=== PATIENT | male | born 1945 | race Caucasian/White ===

== ENCOUNTER → 2022-08-08 | Outpatient (CLI) | payer MEDICARE ==
[2022-08-08 15:16] LABS: Basophils # (A) 0.04 X 10*3/uL (0.00-0.10); Basophils % (A) 0.6 %; Eosinophils # (A) 0.51 X 10*3/uL (0.04-0.35); Eosinophils % (A) 7.2 %; HCT 42.5 % (39.6-50.0); Immature Grans, Automated 0.3 %; Lymphocytes # (A) 2.37 X 10*3/uL (0.90-5.00); Lymphocytes % (A) 33.2 %; MCH 28.9 pg (27.0-32.0); MCHC 32.9 g/dL (32.0-37.0); MCV 87.8 fL (80.0-97.0); Mean Platelet Volume 10.4 fL (9.5-12.2); Monocytes # (A) 0.59 X 10*3/uL (0.20-1.00); Monocytes % (A) 8.3 %; NRBC Per 100 WBC 0 /100 WBCS (0.0-0.0); Neutrophils % (A) 50.4 %; Platelet Count 199 X 10*3/uL (140-440); RBC 4.84 X 10*6/uL (4.40-5.60); RDW 12.9 % (11.5-14.5); WBC 7.13 X 10*3/uL (4.50-10.00)
[2022-08-08 15:48] LABS: African American GFR (CKD) 67.2 (60.0-200.0); Anion Gap 9.1 mmol/L (10.00-18.00); BUN/Creat Ratio 18.75 Ratio (12.00-20.00); Blood Urea Nitrogen 22.5 mg/dL (9.0-27.0); Calcium 9.6 mg/dL (8.7-10.3); Carbon Dioxide 27.9 mmol/L (20.0-27.5); Potassium 4.6 mmol/L (3.5-5.5)
[2022-08-08 16:13] LABS: INR 0.88 (0.90-1.11)
== END | disposition home or self-care (01) ==
LOC: LABWHC1 09:18
PROVIDERS: ATTEND Orthopaedic Surgery
DX: Z01.812 Encounter for preprocedural laboratory examination (principal); M17.12 Unilateral primary osteoarthritis, left knee
CPT/HCPCS: 36415; 80048; 85025; 85610

== ENCOUNTER 2022-08-18 07:39 | Day surgery (SDC) | payer MEDICARE ==
[2022-08-08 13:58] VITALS: BMI 26.4
--- NOTE | 2022-08-17 13:14 | HP ---
HISTORY AND PHYSICAL DATE OF SURGERY: 08/18/2022. HISTORY OF PRESENT ILLNESS: Chicho Napoles is a 77-year-old gentleman seen with symptomatic left knee osteoarthritis. We discussed options regarding treatment. He elected to proceed with left total knee arthroplasty. Consent regarding the procedure was obtained. PAST MEDICAL HISTORY: Hypertension, hyperlipidemia. PAST SURGICAL HISTORY: Right shoulder arthroscopy. DAILY MEDICATIONS: 1. Amlodipine. 2. Atorvastatin. 3. Losartan. 4. Propranolol. ALLERGIES: None. SOCIAL HISTORY: Denies tobacco use. PHYSICAL EVALUATION OF THE LEFT KNEE: Range of motion is -2/3 to 120 degrees. Mild effusion. Tenderness to medial joint line. Crepitus, medial patellofemoral compartments with range of motion. Some pain with patellofemoral compression. Ligaments stable. Hip rotation without pain. Distal neurovascular exam is intact. RADIOGRAPHS: Radiographs of the left knee reveal severe osteoarthritic changes. There were also 3 metallic alonzo within the medial proximal femur consistent with previous surgery. IMPRESSION: 1. Left knee osteoarthritis. 2. Hypertension. 3. Hyperlipidemia. PLAN: Left total knee arthroplasty. MMODL / IJN: [id number] /
[~2022-08-18 07:39] MED LIST: ACETAMINOPHEN TAB 500 MG TAB PO PRN; DEXAMETHASONE SOD PHOSPHATE 4 MG/ML 1 ML VIAL IV ONE; HYDROmorphone 0.5 MG/0.5 ML SYRINGE IVP PRN; LIDOCAINE 1% (10MG/ML) FOR IV START INTRADERMA PRN; MELOXICAM 7.5 MG TAB PO PRN; MIDAZOLAM 2 MG/2 ML VIAL IV PRN; ONDANSETRON 4 MG/2 ML VIAL IVP ONE; TRANEXAMIC ACID IN NACL,ISO-OS 1,000 MG in SALINE 1 100ML.BAG IVPB PRN
[2022-08-18] MEDS: LACTATED RINGERS 1,000 ML IV SCH (08:53)
[2022-08-18] MEDS ORDERED: MIDAZOLAM 2 MG/2 ML VIAL IVP ONE (09:11)
[2022-08-18] MEDS ORDERED: fentaNYL (PF) 50 MCG/ML 2 ML AMP IVP ONE (09:11)
--- NOTE | 2022-08-18 09:42 | P.ANPRN ---
Procedure Note - Anesthesia - Nerve Block Performed Left Adductor Canal Time Out Performed: Yes (09:10) Date of Procedure: 08/18/22 Procedure Start Time: : Procedure Stop Time: : Location of Patient: PreOp Indication: Acute Post-Operative Pain, Requested by Surgeon (Dr flores) Sedation Type: Sedate with meaningful contact maintained Preparation: Sterile Prep, Sterile Dressing Position: Supine Catheter: Indwelling Needle Types: Pajunk Needle Gauge: 21 Ultrasound used to visualize needle placement: Yes Ultrasound used to observe medication spread: Yes Injectate: 0.5% Ropivacaine (see comment for volume) (15cc +5cc PF Normal saline) Blood Aspirated: No Pain Paresthesia on Injection Noted: No Resistance on Injection: Normal Image Stored and Saved: Yes Events: Uneventful and Well Tolerated
--- NOTE | 2022-08-18 09:44 | P.ANPRN ---
Procedure Note - Anesthesia - Nerve Block Performed Left iPack Time Out Performed: Yes Date of Procedure: 08/18/22 Procedure Start Time: Procedure Stop Time: Location of Patient: PreOp Indication: Acute Post-Operative Pain, Requested by Surgeon (Dr Yoo) Sedation Type: Sedate with meaningful contact maintained Preparation: Sterile Prep Position: Supine Catheter: None Needle Types: Pajunk Needle Gauge: 21, Other (see comment) Ultrasound used to visualize needle placement: Yes Ultrasound used to observe medication spread: Yes Injectate: 0.5% Ropivacaine (see comment for volume) (15cc +5cc PF Normal saline) Blood Aspirated: No Pain Paresthesia on Injection Noted: No Resistance on Injection: Normal Image Stored and Saved: Yes Events: Uneventful and Well Tolerated
[2022-08-18] MEDS ORDERED: ePHEDrine 50 MG/ML 1 ML VIAL ONE (10:21)
[2022-08-18] MEDS ORDERED: MIDAZOLAM 2 MG/2 ML VIAL ONE (10:21)
[2022-08-18] MEDS ORDERED: TRANEXAMIC ACID IN NACL,ISO-OS 1,000 MG/100 ML BAG ONE (10:21)
[2022-08-18] MEDS ORDERED: PROPOFOL 10 MG/ML 20 ML VIAL IV ONE (10:21)
[2022-08-18] MEDS ORDERED: fentaNYL (PF) 50 MCG/ML 2 ML AMP ONE (10:21)
[2022-08-18] MEDS ORDERED: ceFAZolin 1,000 MG in SODIUM CHLORIDE 0.9% 1,000 ML IRRIGATION ONE (10:47)
[2022-08-18] MEDS ORDERED: LACTATED RINGERS 1,000 ML IV ONE (10:47)
[2022-08-18] MEDS ORDERED: HYDROmorphone 0.5 MG/0.5 ML SYRINGE IVP PRN ×3 (11:55)
[2022-08-18] MEDS ORDERED: ONDANSETRON 4 MG/2 ML VIAL IVP PRN (11:55)
[2022-08-18] MEDS ORDERED: HYDROcodone/APAP 5-325MG 1 EACH TAB PO PRN (11:55)
[2022-08-18] MEDS ORDERED: NALOXONE 0.4 MG/ML 1 ML VIAL IV PRN (11:55)
--- NOTE | 2022-08-18 11:55 | P.OP ---
Date of Procedure: 08/18/22 Preoperative Diagnosis: Left knee osteoarthritis Postoperative Diagnosis: Left knee osteoarthritis Procedure(s) Performed: Left total knee arthroplasty Implants: 1. Depuy attune size 7 left cruciate retaining cemented femur 2. Depuy attune size 8 fixed bearing cemented tibial baseplate 3. Depuy attune size 7 fixed bearing cruciate retaining 16mm polyethylene tibial insert 4. Depuy attune 38 mm all polyethylene cemented patella Anesthesia: regional (Adductor canal catheter, Ipack block), spinal Surgeon: Paramjit Yoo Reconciliation Coordinator #1: Erasmo Posada Estimated Blood Loss (ml): 45 Pathology: other (Bone) Condition: stable Disposition: PACU Indications for Procedure: 77-year-old patient seen with symptomatic left knee osteoarthritis. After treatment options were discussed, he elected to proceed with total knee art hroplasty. Operative Findings: See description of procedure Description of Procedure: Patient was taken to the operative suite after having an adductor canal catheter placed by the department of anesthesia. Patient underwent a spinal anesthetic by the department of anesthesia. Patient was given preoperative IV intake antibiotics and TXA. A well-padded tourniquet was placed about the left lower extremity. The lower extremity was then prepped and draped in the normal sterile orthopedic fashion. The extremity was elevated, a tourniquet was insufflated to 300. A standard anterior incision was made sharply through skin. Dissection was taken down through the subcutaneous soft tissues down to the extensor mechanism. A medial arthrotomy was performed, patella was everted and knee was flexed. There was advanced osteoarthritis noted. I introduced my distal intramedullary femoral drill. I then introduced the distal femoral cutting jig. Raghav VALLE secured the cutting jig with 2 pins. I held retractors in position while Raghav VALLE performed the distal femoral resection through the guide area we now removed her distal femoral cutting guide. We now placed our 4-in-1 femoral cutting block and positioned and it was secured with 2 pins by Raghav VALLE while I held the block in position. The distal femoral finishing was now completed. A proximal tibial cutting guide was positioned. I held the guide in the appropriate position with both hands well Raghav VALLE inserted stabilizing pins into the guide. Proximal tibial cut was made. We now placed a trial femoral component into position, along with an appropriate size tibial tray and insert. We now took the knee through range of motion and had full extension good flexion and good overall soft tissue balance noted. The patella was everted and stabilized with 2 towel clips held by Raghav VALLE while I performed a flush with patellar quad tendon utilizing a fresh sawblade. We templated the patella, appropriate drill holes were made. An appropriate trial patella was positioned, knee was taken through full range of motion with the patella tracking very nicely. The trial patella was removed. Drill holes were made through the femoral component. All trial components were removed after marking off the appropriate rotation of the tibia. Retractors we re now positioned along the proximal tibia. An appropriate keel punch was made with the appropriate size tibial guide by myself on Raghav VALLE assisted by holding retractors. At this point appropriate size implants were chosen and opened. The joint was irrigated copiously with pulse lavage mechanical irrigation. The wound was irrigated with pulse lavage mechanical irrigation. We mixed antibiotic methylmethacrylate. We placed the knee into flexion. We placed multiple retractors assisted by Raghav VALLE to expose the proximal tibia. Once the methyl methacrylate was ready, the tibial component was cemented into place removing any excess methylmethacrylate form by both myself and Raghav VALLE. The femoral component was cemented into place removing the removing any excess methylmethacrylate performed by both myself and Raghav VALLE. We then inserted the appropriate size polyethylene tibial insert. We made sure that it was locked into position. We took the knee into full extension, and then back in a flexion making sure we had removed any excess methylmethacrylate. The patellar component was then cemented down and secured with clamp. Excess methylmethacrylate removed. We kept the knee in full extension, patellar clamp in position until methylmethacrylate had hardened. Once it had hardened the patellar clamp was removed. The knee was taken through full range of motion. The patella tracked nicely. There was good soft tissue balancing. The tourniquet was now released. Additional hemostasis was achieved via electrocautery. A second gram of TXA was given. The wound again was irrigated with pulse lavage mechanical irrigation. The extensor mechanism was repaired with Ethibond suture. We checked the repair with range of motion and it was stable. The subcutaneous soft tissues were repaired with Vicryl in layers. The skin was approximated with pernio/Dermabond. Sterile dressings were applied followed by loose web roll and Alexandro bandage. The patient was transferred to a bed, and taken to recovery in stable and satisfactory condition. Raghav VALLE assisted with this complex procedure.
[2022-08-18] MEDS ORDERED: ROPIVACAINE 1,100 MG, SODIUM CHLORIDE 0.9% 500 ML 330 ML, EMPTY PAIN BALL 1 EACH MISCELLANE PRN ×2 (12:42)
--- NOTE | 2022-08-18 12:49 | XR ---
EXAMINATION TYPE: XR knee limited LT DATE OF EXAM: 08/18/2022 CLINICAL HISTORY: Left knee pain and arthritis status post total knee replacement. TECHNIQUE: Portable AP and crosstable lateral views of the left knee are obtained immediately postop eratively. COMPARISON: Outside left knee x-ray June 17, 2022 FINDINGS: Metallic hardware from total left knee arthroplasty is seen and appears satisfactory in al ignment and position. Retained large alonzo distal medial femoral condyle are redemonstrated. There is evidence of recent surgery with diffuse subcutaneous gas and soft tissue swelling noted. IMPRESSION: METALLIC HARDWARE FROM TOTAL LEFT KNEE ARTHROPLASTY IS SATISFACTORY IN ALIGNMENT.
[2022-08-18] MEDS: SODIUM CHLORIDE 0.9% 1,000 ML IV SCH (13:29)
[2022-08-18] MEDS: HYDROcodone/APAP 7.5-325MG 1 EACH TAB PO PRN ×2 (14:38→21:21)
[2022-08-18] MEDS ORDERED: SENNOSIDES-DOCUSATE SODIUM 1 EACH TAB PO SCH (21:00)
[2022-08-18] MEDS ORDERED: amLODIPine 5 MG TAB PO SCH (21:00)
[2022-08-18] MEDS ORDERED: ATORVASTATIN 40 MG TAB PO SCH (21:00)
[2022-08-18] MEDS ORDERED: PROPRANOLOL LA 60 MG CAP.SA.24H PO SCH (21:00)
--- NOTE | 2022-08-18 23:05 | P.CONS ---
History of Present Illness - Reason for Consult Consult date: 08/18/22 - History of Present Illness Patient is a 77-year-old male with a known history of hypertension, hyperlipidemia, osteoarthritis, coronary artery with history of stent placement, BPH, hearing disorder/deafness and prior history of smoking quit several years ago was admitted to the hospital for elective left total knee arthroplasty. Patient tolerated the procedure very well. Currently pain is controlled and is on pain pump. Postoperatively blood pressure is elevated with SBP in 160s. Patient denies any complaints of chest pain or shortness of breath. No headache or dizziness or lightheadedness. No nausea or vomiting or abdominal pain or diarrhea. Laboratory data is not available at this time. Review of Systems Constitutional: Patient denies any fever or chills . no Generalized weakness. Abdomen: Patient denied any nausea or vomiting or abd. pain Cardiovascular: Patient denies any chest pain or short of breath no palpitations. Respiratory: patient denied any cough . no sputum production. No shortness of breath Neurologic: Patient denied any numbness or tingling headache. Musculoskeletal: Patient denies any complaints of joint swelling or deformity. Skin: Negative Psychiatric: Negative Endocrine: No heat or cold intolerance. No recent weight gain. Genitourinary: No dysuria or hematuria. All other 14 point ROS negative except the above Past Medical History Past Medical History: Cancer, COPD, Hearing Disorder / Deafness, Hyperlipidemia, Hypertension, Musculoskeletal Disorder, Osteoarthritis (OA), Prostate Disorder Additional Past Medical History / Comment(s): hx. skin cancer , cleopatra tinnitis, wears cleopatra hearing aides,BPH History of Any Multi-Drug Resistant Organisms: None Reported Past Surgical History: Appendectomy, Heart Catheterization With Stent, Hernia Repair, Orthopedic Surgery Additional Past Surgical History / Comment(s): knee surg lft., bilateral shoulder surg, laser surgery x2 for enlarged prostate,turp for prostate disorder, heart cath after positive stress test Past Anesthesia/Blood Transfusion Reactions: No Reported Reaction Additional Past Anesthesia/Blood Transfusion Reaction / Comm: urine retention x after shoulder surgery before TURP Date of Last Stent Placement:: 10/25/19 Past Psychological History: No Psychological Hx Reported Smoking Status: Former smoker Past Alcohol Use History: None Reported Additional Past Alcohol Use History / Comment(s): quit 1989,started smoking at age 12 Past Drug Use History: None Reported - Past Family History Mother Family Medical History: Cancer Sister(s) Family Medical History: Cancer Additional Family Medical History / Comment(s): twin sisters-1 had ovarian CA,1 had breast CA w. mets to brain Medications and Allergies Home Medications Medication Instructions Recorded Confirmed Type Diclofenac Potassium [Cataflam] 50 mg PO BID 08/15/14 08/14/22 History Atorvastatin Calcium 40 mg PO HS 07/08/22 08/08/22 History Losartan Potassium 100 mg PO HS 07/08/22 08/08/22 History Propranolol HCl [Inderal] 60 mg PO HS 07/08/22 08/08/22 History amLODIPine [Norvasc] 5 mg PO HS 07/08/22 08/08/22 History Clopidogrel [Plavix] 75 mg PO DAILY 08/18/22 08/18/22 History Allergies Allergy/AdvReac Type Severity Reaction Status Date / Time No Known Allergies Allergy Verified 08/18/22 08:06 Physical Exam Vitals: Vital Signs Temp Pulse Pulse Pulse Resp BP Pulse Ox 08/18/22 21:18 76 129/82 08/18/22 19:20 97.5 F L 71 17 147/84 94 L 08/18/22 16:00 58 L 165/99 08/18/22 15:45 56 L 154/97 08/18/22 15:30 57 L 172/95 08/18/22 15:15 55 L 170/96 08/18/22 15:00 54 L 174/100 08/18/22 14:45 53 L 183/82 08/18/22 14:30 52 L 160/89 08/18/22 14:15 50 L 164/92 08/18/22 14:00 97.4 F L 53 L 16 144/80 94 L 08/18/22 13:01 51 L 16 148/80 100 08/18/22 12:46 62 17 128/80 08/18/22 12:31 51 L 17 130/78 97 08/18/22 12:16 96.9 F L 50 L 16 128/69 95 08/18/22 09:32 47 L 16 125/72 99 08/18/22 08:28 97.3 F L 53 L 16 148/73 97 Intake and Output 08/18/22 08/18/22 08/18/22 06:59 14:59 22:59 Intake Total 1851 480 Output Total 45 600 Balance 1806 -120 Intake: IV 1851 Oral 480 Output: Urine 600 Estimated Blood Loss 45 Other: # Voids 0 Weight 86.9 kg PHYSICAL EXAMINATION: Patient is lying in the bed comfortably, no acute distress, awake alert and oriented.. HEENT: Normocephalic. Neck is supple. Pupils reactive. Nostrils clear. Oral cavity is moist. Neck reveals no JVD, carotid bruits, or thyromegaly. CHEST EXAMINATION: Trachea is central. Symmetrical expansion. Bibasilar diminished sounds. No wheezing. CARDIAC: Normal S1, S2 with no gallops. No murmurs ABDOMEN: Soft. Bowel sounds present. Nontender. No organomegaly. No abdominal bruits. Extremities: reveal no edema. No clubbing or cyanosis Neurologically awake, alert, oriented x3 with well-coordinated movements. No focal deficits noted Skin: No rash or skin lesions. Psychiatric: Coperative. Nonsuicidal, Musculoskeletal: No joint swelling or deformity. Normal range of motion. Right knee surgical site is bandaged. Assessment and Plan Assessment: Status post left total knee arthroplasty postoperative day 0 Hypertension uncontrolled likely due to pain. Coronary artery with history of stent placement Hyperlipidemia COPD and remote history of smoking History of skin cancer Hearing disorder/deafness Osteoarthritis BPH s/p TURP GI and DVT prophylaxis as per orthopedic surgery protocol Plan: Patient will be started back on blood pressure medications amlodipine, losartan and propranolol. Titrate blood pressure medications as needed. Continue with Plavix and statins. Patient is currently on nerve block. Pain is fairly controlled. Bowel regimen and DVT prophylaxis. Encourage incentive spirometry. Follow-up CBC and BMP tomorrow. Further recommendations based on the clinical course. Thank you for your consult. Time with Patient: Greater than 30
[2022-08-19 03:24] VITALS: TEMP 97.9
[2022-08-19] MEDS ORDERED: ENOXAPARIN 30 MG/0.3 ML SYRINGE SQ SCH (05:00)
[2022-08-19] MEDS: HYDROcodone/APAP 7.5-325MG 1 EACH TAB PO PRN ×2 (05:06→10:22)
--- NOTE | 2022-08-19 06:35 | P.PN ---
Progress Note - Text The patient is status post, left adductor canal catheter placement. The catheter was placed for postoperative pain control, status post total left knee arthroplasty. Ropivacaine 0.2% is infusing at 8 mLs per hour. The patient has no complaints of left lower extremity numbness or weakness. Patient's VAS score is 1-2-10. This discomfort is in the lateral aspect of the knee. Assessment: Patient's adductor canal catheter is in place and working appropriately. Plan: continue infusion and adjust it as needed.
[2022-08-19] MEDS: SODIUM CHLORIDE 0.9% 1,000 ML IV SCH (07:49)
[2022-08-19] MEDS: LACTATED RINGERS 1,000 ML IV SCH (07:49)
[2022-08-19 08:21] VITALS: BP 153/78; PULSE 65; RESP 18
[2022-08-19] MEDS ORDERED: CLOPIDOGREL 75 MG TAB PO SCH (09:00)
[2022-08-19 10:59] LABS: Basophils # (A) 0.03 X 10*3/uL (0.00-0.10); Basophils % (A) 0.2 %; Eosinophils # (A) 0.02 X 10*3/uL (0.04-0.35); Eosinophils % (A) 0.1 %; HCT 40.9 % (39.6-50.0); Immature Grans, Automated 0.5 %; Lymphocytes % (A) 14.1 %; MCH 29.7 pg (27.0-32.0); MCHC 34.2 g/dL (32.0-37.0); MCV 86.8 fL (80.0-97.0); Mean Platelet Volume 10.6 fL (9.5-12.2); Monocytes # (A) 1.38 X 10*3/uL (0.20-1.00); Monocytes % (A) 9.3 %; NRBC Per 100 WBC 0 /100 WBCS (0.0-0.0); Neutrophils % (A) 75.8 %; Platelet Count 219 X 10*3/uL (140-440); RBC 4.71 X 10*6/uL (4.40-5.60); RDW 13.2 % (11.5-14.5); WBC 14.91 X 10*3/uL (4.50-10.00)
[2022-08-19 11:12] LABS: African American GFR (CKD) 95.1 (60.0-200.0); Anion Gap 9.5 mmol/L (10.00-18.00); BUN/Creat Ratio 16.89 Ratio (12.00-20.00); Blood Urea Nitrogen 15.2 mg/dL (9.0-27.0); Calcium 9.3 mg/dL (8.7-10.3); Carbon Dioxide 25.5 mmol/L (20.0-27.5); Non-African American GFR(CKD) 82.1 (60.0-200.0); Potassium 4.9 mmol/L (3.5-5.5)
--- NOTE | 2022-08-19 11:24 | P.DS ---
Providers Date of admission: 08/18/2022 Expected date of discharge: 08/19/22 Attending physician: Paramjit Yoo Consults: 08/18/22 11:55 Consult Physician Routine Consulting Provider: Dwayne Cruz Consult Reason/Comments: Medical management Do you want consulting provider notified?: Yes Primary care physician: Binh Rodrigues MD Hospital Course: Date of admission: 08/18/2022 Date of discharge: 08/19/2022 Admission diagnosis: Left knee osteoarthritis Discharge diagnosis: Same Attending physician: Dr. Yoo Surgical procedures: Left total knee arthroplasty Brief history: Patient is a 77-year-old male with a history of progressive primary left knee osteoarthritis. At this point patient has failed conservative treatment measures and has opted to proceed with a elective left total knee arthroplasty. Hospital course: Details of patient's surgery can be found in operative report. Patient tolerated the procedure well and was subsequently transported to orthopedic floor. Patient's orthopeidc and medical care was provided daily. Patient had daily laboratory tests performed for evaluation of overall blood counts. Patient had daily physical therapy to include strengthening range of motion as well as education with walker ambulation. Patient was treated with Lovenox for their postoperative DVT prophylaxis during their inpatient stay. Patient was noted to have a relatively uneventful postoperative course. Patient reported satisfactory pain control with oral pain medications by postoperative day 1. Patient showed satisfactory progress with physical therapy. Patient moved steadily through the program and had no difficulty meeting the goals by postoperative day 1. Given patient's otherwise satisfactory course and having met physical therapy goals, plan is to discharge patient home with health services on postoperative day 1. Discharge condition/disposition: Patient will be discharged home with health services in stable condition. Discharge medications: Instructions are given on resumption of patient's normal daily medications per primary care recommendation, in addition patient will be prescribed [place] 7.5 mg/325 mg; senna; resume Plavix 75 mg daily once home Discharge instructions: 1. Wound care and infection precautions, keep incision dry and covered while showering, no lotions, creams, moisturizers. No soaking, tubs, pools, hottubs. Do not scrub over the incision. 2. Weight-bear as tolerated with walker / cane until follow-up. 3. Ice and elevate when necessary. Do not exceed 20 minutes per hour with ice pack. 4. Utilize compression sleeve until seen at first follow up appointment. 5. Visiting nursing care. 6. Home physical therapy including home CPM. 7. Pain meds and anticoagulants per prescription. 8. Pain medication has potential to cause constipation. Increase oral fluid and fiber intake. Contact primary care provider if you have not had a bowel movement within 48 hours after discharge 9. No anti-inflammatory medication until discussed at first post operative visit, this including Motrin, Aleve, Mobic, Diclofenac 10. Follow up in office at 2 weeks postop with Raghav Posada PA-C / Jose Jacobsen PA-C 11. Follow up with your primary care doctor 7-10 days after discharge. 12. Contact [facility] with any questions, . Keep incision clean, dry, intact. While showering, cover silver foam dressing with Saran wrap. Silver foam dressing may removed in 7 days, 08/25/2022. May shower directly over incision once silver foam dressing is removed Assessment: Left knee osteoarthritis Procedures: Left total knee arthroplasty Patient Condition at Discharge: Good Plan - Discharge Summary Discharge Rx Participant: No New Discharge Prescriptions: New HYDROcodone/APAP 7.5-325MG [[place] 7.5] 1 - 2 each PO Q6HR PRN #32 tab PRN Reason: Pain Sennosides/Docusate Sodium [Senna Plus 8.6-50 mg Softgel] 1 each PO DAILY #20 capsule Continue Clopidogrel [Plavix] 75 mg PO DAILY No Action Diclofenac Potassium [Cataflam] 50 mg PO BID Propranolol HCl [Inderal] 60 mg PO HS amLODIPine [Norvasc] 5 mg PO HS Losartan Potassium 100 mg PO HS Atorvastatin Calcium 40 mg PO HS Discharge Medication List Diclofenac Potassium [Cataflam] 50 mg PO BID 08/15/14 [History] Atorvastatin Calcium 40 mg PO HS 07/08/22 [History] Losartan Potassium 100 mg PO HS 07/08/22 [History] Propranolol HCl [Inderal] 60 mg PO HS 07/08/22 [History] amLODIPine [Norvasc] 5 mg PO HS 07/08/22 [History] Clopidogrel [Plavix] 75 mg PO DAILY 08/18/22 [History] HYDROcodone/APAP 7.5-325MG [[place] 7.5] 1 - 2 each PO Q6HR PRN #32 tab 08/19/22 [Rx] Sennosides/Docusate Sodium [Senna Plus 8.6-50 mg Softgel] 1 each PO DAILY #20 capsule 08/19/22 [Rx] Follow up Appointment(s)/Referral(s): Binh Rodrigues MD [Primary Care Provider] - 1 Week Erasmo Posada PAC [PHYSICIAN HAND CLOTH FOLDER] - 09/03/22 4:10 pm Patient Instructions/Handouts: Knee Replacement (DC) Activity/Diet/Wound Care/Special Instructions: Discharge instructions: 1. Wound care and infection precautions, keep incision dry and covered while showering, no lotions, creams, moisturizers. No soaking, tubs, pools, hottubs. Do not scrub over the incision. 2. Weight-bear as tolerated with walker / cane until follow-up. 3. Ice and elevate when necessary. Do not exceed 20 minutes per hour with ice pack. 4. Utilize compression sleeve until seen at first follow up appointment. 5. Visiting nursing care. 6. Home physical therapy including home CPM. 7. Pain meds and anticoagulants per prescription. 8. Pain medication has potential to cause constipation. Increase oral fluid and fiber intake. Contact primary care provider if you have not had a bowel movement within 48 hours after discharge 9. No anti-inflammatory medication until discussed at first post operative visit, this including Motrin, Aleve, Mobic, Diclofenac 10. Follow up in office at 2 weeks postop with Raghav Posada PA-C / Jose Jacobsen PA-C 11. Follow up with your primary care doctor 7-10 days after discharge. 12. Contact [facility] with any questions, . Keep incision clean, dry, intact. While showering, cover silver foam dressing with Saran wrap. Silver foam dressing may removed in 7 days, 08/25/2022. May shower directly over incision once silver foam dressing is removed Discharge Disposition: HOME WITH HOME HEALTH SERVICES
--- NOTE | 2022-08-19 11:28 | P.PN ---
Subjective Progress Note Date: 08/19/22 Principal diagnosis: Left knee osteoarthritis Patient was seen at bedside this morning walking from bathroom and sitting down at the edge of the bed. Patient says he is in a fair amount of pain currently. Patient states most the pain is located at the front of the knee. Patient denies radiation of pain. Patient says physical therapy did go well this morning. Patient says he is looking forward to going home later today. Patient says he does have a walker at home. Patient says normally he had been taking Plavix at home prior to surgery. Patient says he has urinated several times since surgery yesterday. Patient says he has not had bowel movement yet, however, patient says he has been passing gas. Patient says he has been using incentive spirometer. Patient denies chest pain, fever, shortness of breath, nausea, lying, change in vision, loss of bowel/bladder control. Objective - Vital Signs Vital signs: Vital Signs Temp 97.9 F 08/19/22 02:00 Pulse 65 08/19/22 08:00 Resp 18 08/19/22 08:00 BP 153/78 08/19/22 08:00 Pulse Ox 96 08/19/22 08:00 FiO2 Intake & Output 08/18/22 08/19/22 08/19/22 18:59 06:59 18:59 Intake Total 2331 Output Total 45 1500 Balance 2286 -1500 Weight 86.9 kg Intake: IV 1851 Oral 480 Output: Urine 1500 Estimated Blood Loss 45 Other: # Voids 0 - Exam Left knee: Incision is clean, dry, and intact. The silver foam dressing is in good condition. There is minimal soft tissue swelling and ecchymosis surrounding the medial and lateral aspects of the incision. Calf is soft, no tenderness with palpation. Plantar flexion, dorsiflexion, EHL, FHL are intact. Sensory exam to light touch throughout the extremity is intact, dorsal pedis pulses 2+. - Labs CBC & Chem 7: 08/19/22 06:58 08/19/22 06:58 Labs: Abnormal Lab Results - Last 24 Hours (Table) 08/19/22 Range/Units 06:58 WBC 14.91 H (4.50-10.00) X 10*3/uL Immature Gran # 0.08 H (0.00-0.04) X 10*3/uL Neutrophils # 11.30 H (1.80-7.70) X 10*3/uL Monocytes # 1.38 H (0.20-1.00) X 10*3/uL Eosinophils # 0.02 L (0.04-0.35) X 10*3/uL Assessment and Plan Assessment: 1. Left knee osteoarthritis - Postoperative day #1 status post left total knee arthroplasty Plan: 1. Left knee osteoarthritis - left total knee arthroplasty performed yesterday, 08/18/2022. Patient stable bedside this morning. Patient does have a walker for home. Discharge home today with health services. 2. Appreciate medical management 3. Pain management - [place] 4. DVT prophylaxis - Lovenox in hospital. Resume Plavix once home 5. GI prophylaxis - senna 6. PT/OT - weightbearing as tolerated with walker 7. Encourage incentive spirometer use 8. Discharge planning - discharge home today with health services Time with Patient: Less than 30
[2022-08-19] MEDS ORDERED: MULTIVITAMINS, THERA 1 EACH TAB PO SCH (12:00)
--- NOTE | 2022-08-19 22:35 | PN ---
PROGRESS NOTE DATE OF SERVICE: 08/19/2022 SUBJECTIVE: This is a 77-year-old gentleman, who was admitted after left total knee arthroplasty, improving significantly. No chest pain. No palpitations. No fever. OBJECTIVE: VITAL SIGNS: Pulse is 65, blood pressure 115/70, respirations 18. CHEST: Clear to auscultation. CARDIOVASCULAR: S1 and S2. ABDOMEN: Soft. LEGS: Status post left arthroplasty. LABORATORY DATA: Noted. ASSESSMENT: 1. Status post left total knee arthroplasty. 2. Hypertension. 3. Coronary artery disease. 4. Hyperlipidemia. 5. Multiple medical issues. RECOMMENDATIONS AND DISCUSSION: This patient medically stable at this time. I would recommend to resume the home medications and follow up with the primary physician. The rest of the recommendations including DVT prophylaxis per Orthopedics. MMODL / IJN: [id number] / MTDD
== END 2022-08-19 12:55 | disposition home health service (06) ==
LOC: OR 07:39 → 4SSUR 12:10 → OR 08-19 12:55
PROVIDERS: ATTEND Orthopaedic Surgery
DX: M17.12 Unilateral primary osteoarthritis, left knee (principal); G89.18 Other acute postprocedural pain; I10 Essential (primary) hypertension; E78.5 Hyperlipidemia, unspecified; H91.90 Unspecified hearing loss, unspecified ear; J44.9 Chronic obstructive pulmonary disease, unspecified; N42.9 Disorder of prostate, unspecified; N40.0 Benign prostatic hyperplasia without lower urinary tract symptoms; Z90.49 Acquired absence of other specified parts of digestive tract; Z95.5 Presence of coronary angioplasty implant and graft; Z98.890 Other specified postprocedural states; Z87.891 Personal history of nicotine dependence; Z80.8 Family history of malignant neoplasm of other organs or systems; Z80.3 Family history of malignant neoplasm of breast; Z79.899 Other long term (current) drug therapy; Z79.02 Long term (current) use of antithrombotics/antiplatelets
CPT/HCPCS: 97161; 64999; 64448; 76942; 80048; 85025; 88300; 73560; 27447; C1776; C1713 ×2; C1751; J2250; J1100; J0690 ×3; J2405; J3010; J1650; J2795; J1170

== ENCOUNTER 2022-11-26 08:58 | Observation (INO) | payer MEDICARE, OTHER ==
[2022-11-25 12:03] VITALS: BMI 25.6
--- NOTE | 2022-11-25 15:33 | HP ---
HISTORY AND PHYSICAL DATE OF SURGERY: 11/26/2022. HISTORY OF PRESENT ILLNESS: Chicho Napoles is a 77-year-old gentleman seen with a left knee periprosthetic quadriceps tendon rupture. I discussed open repair of his quadriceps tendon rupture. He was agreeable. Consent was obtained. PAST MEDICAL HISTORY: Hypertension, hyperlipidemia. PAST SURGICAL HISTORY: Left total knee arthroplasty, right shoulder arthroscopy. DAILY MEDICATIONS: 1. Amlodipine. 2. Atorvastatin. 3. Losartan. 4. Propranolol. ALLERGIES: None. SOCIAL HISTORY: He denies current tobacco use. PHYSICAL EVALUATION OF THE LEFT KNEE: There is an obvious defect along the distal quadriceps tendon area consistent with quadriceps tendon rupture. He is unable to fully extend his knee. His previous incision is well healed. His collateral ligaments are stable. His distal neurovascular exam is intact. RADIOGRAPHS: Radiographs of the left knee revealed a stable appearing total knee arthroplasty. There is evidence of patella baja consistent with extensor tendon injury. IMPRESSION: 1. Left knee quadriceps tendon rupture. 2. History of left total knee arthroplasty. 3. Hypertension. 4. Hyperlipidemia. PLAN: Left knee open quadriceps tendon repair. MMODL / IJN: [id number] /
[2022-11-26] MEDS ORDERED: LACTATED RINGERS 1,000 ML IV ONE ×2 (09:32→11:29)
[2022-11-26] MEDS ORDERED: ONDANSETRON 4 MG/2 ML VIAL ONE (09:34)
[2022-11-26] MEDS ORDERED: DEXAMETHASONE SOD PHOSPHATE 4 MG/ML 1 ML VIAL IVP ONE (09:37)
[2022-11-26] MEDS ORDERED: fentaNYL (PF) 50 MCG/ML 2 ML AMP ONE (10:30)
[2022-11-26] MEDS ORDERED: NEOSTIGMINE 1 MG/ML 10 ML VIAL ONE (10:30)
[2022-11-26] MEDS ORDERED: ROCURONIUM 10 MG/ML (5 ML VIAL) IV ONE (10:30)
[2022-11-26] MEDS ORDERED: HYDROmorphone (PF) 1 MG/ML ONE (10:30)
[2022-11-26] MEDS ORDERED: LABETALOL SYRINGE 5 MG/ML (4 ML SYR) ONE (10:30)
[2022-11-26] MEDS ORDERED: MIDAZOLAM 2 MG/2 ML VIAL ONE (10:30)
[2022-11-26] MEDS ORDERED: LIDOCAINE 2% INJ 20 MG/ML (2 ML VIAL) ONE (10:30)
[2022-11-26] MEDS ORDERED: ePHEDrine 50 MG/ML 1 ML VIAL ONE (10:30)
[2022-11-26] MEDS ORDERED: PROPOFOL 10 MG/ML 20 ML VIAL IV ONE (10:30)
[2022-11-26] MEDS ORDERED: SUCCINYLCHOLINE CHLORIDE 200 MG/10 ML VIAL IV ONE (10:30)
[2022-11-26] MEDS ORDERED: GLYCOPYRROLATE 0.2 MG/ML 2 ML VIAL ONE (10:30)
[2022-11-26] MEDS ORDERED: HYDROcodone/APAP 5-325MG 1 EACH TAB PO PRN ×2 (11:38)
[2022-11-26] MEDS ORDERED: NALOXONE 0.4 MG/ML 1 ML VIAL IV PRN (11:38)
[2022-11-26] MEDS ORDERED: HYDROmorphone 0.5 MG/0.5 ML SYRINGE IVP PRN ×2 (11:38)
[2022-11-26] MEDS ORDERED: ONDANSETRON 4 MG/2 ML VIAL IVP PRN (11:38)
--- NOTE | 2022-11-26 11:38 | P.OP ---
Date of Procedure: 11/26/22 Preoperative Diagnosis: Left knee quadriceps tendon tear Postoperative Diagnosis: Left knee quadriceps tendon tear Procedure(s) Performed: Left knee open quadriceps tendon repair Anesthesia: JARRODA Surgeon: Paramjit Yoo Equipment Cleaner And Tester #1: Jose Jcaobsen Estimated Blood Loss (ml): 12 Pathology: none sent Condition: stable Disposition: PACU Indications for Procedure: 77-year-old gentleman was seen with a clinical left knee quadriceps tendon tear. He had history of previous left total knee arthroplasty as well. I recommended open repair of his quadriceps tendon tear. He was agreeable. Consent was obtained. Operative Findings: See description of procedure Description of Procedure: Patient was taken to the operative suite. He received preoperative IV antibiotics. He underwent a general anesthetic by the department of anesthesia. A well-padded tourniquet was placed along the proximal left thigh. Left lower extremity was prepped and draped in the normal sterile orthopedic fashion. The extremity was elevated and tourniquet insufflated to 300. I now made an incision through previous cicatrix sharply through skin. Once again the subcu soft tissues I encountered hematoma and synovial fluid along with a complete tear of the quadriceps tendon which extended into the medial lateral retinacular areas. We irrigated the wound out copiously with pulse lavage mechanical irrigation and antibiotic irrigant. We now debrided some of the torn tissue and some of the residual sutures were debrided out. The tear was intratendinous. The total knee arthroplasty components appeared stable. I now irrigated the wound out copiously one more time. I now with the assistance of Jose VALLE began doing a soft tissue repair utilizing initially #5 Ethibond in a modified Krakw fashion. I stabilized the tendon centrally well with that. I now began repairing the tendon [id number] fashion medially and laterally utilizing #2 Ethibond. Once I completed the repair including the retinaculum and the entire tendon I checked the repair with flexing the hip to 30 with excellent stability noted. The wound was again irrigated copiously with pulse lavage mechanical irrigation. The subcu soft tissues were repaired with 2-0 Vicryl. The skin was approximated with skin alonzo. Sterile dressings were applied. The tourniquet was released with immediate capillary refill noted. A sterile Alexandro bandage was applied followed by knee immobilizer. The patient was awakened and transferred to recovery in stable condition. Jose VALLE assisted in all aspects of this procedure.
[2022-11-26] MEDS: HYDROmorphone 0.5 MG/0.5 ML SYRINGE IVP PRN ×4 (12:02→13:46)
[2022-11-26] MEDS ORDERED: diphenhydrAMINE 50 MG/ML 1 ML VIAL IVP ONE (12:14)
[2022-11-26] MEDS ORDERED: hydrALAZINE HCL 20 MG/ML 1 ML VIAL IVP ONE (12:56)
[2022-11-26] MEDS: SODIUM CHLORIDE 0.9% 1,000 ML IV SCH (18:10)
--- NOTE | 2022-11-26 19:23 | P.CONS ---
History of Present Illness - Reason for Consult Consult date: 11/26/22 Medical management Requesting physician: Paramjit Yoo - Chief Complaint Left knee tendon repair - History of Present Illness This is a pleasant 77-year-old patient follows with Dr. Binh Rodrigues. Chronic stable medical conditions include COPD, hard of hearing, hyperlipidemia, hypertension, chronic tinnitus, CAD with stent about 3 years ago[address] Wong. Patient has undergone left knee quadriceps tendon repair. Postprocedure left leg in a brace. Pain control. No nausea vomiting. 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 Smoked a pack a day for about 30 years stopped about 33 years ago. . Physical examination: VITAL SIGNS: 97.6, 85, 18, 145-74, 95% room GENERAL: BMI 24.8, reclining but awake not in distress. EYES: Pupils equal. Conjunctiva normal. HEENT: External appearance of nose and ears normal, oral cavity grossly normal. Decreased hearing NECK: JVD not raised; masses not palpable. HEART: First and second heart sounds are normal; no edema. LUNGS: Respiratory rate normal; clear to auscultation. ABDOMEN: Soft, nontender, liver spleen not palpable, no masses palpable. PSYCH: Alert and oriented x3; mood and affect normal. MUSCULOSKELETAL:No Clubbing/cyanosis;muscles-grossly intact. Left leg in a brace NEUROLOGICAL: Cranial nerves grossly intact; no facial asymmetry, power and sensation grossly intact. LYMPHATICS: No lymph nodes palpable in the axilla and neck INVESTIGATIONS, reviewed in the clinical context: Blood work from 08/19/2022: White count 14.9 hemoglobin 14 platelets 219 sodium 138 potassium 4.9 creatinine 0.9 Assessment and plan: -Left knee open quadriceps tendon repair by Dr. Yoo. Left leg in a brace. Pain control. Subcu Lovenox for DVT prophylaxis -COPD in a prior smoker Currently stable. Use albuterol when necessary. -Essential hypertension Losartan. Inderal. Resume amlodipine from tomorrow. -CAD with a prior history of stent Losartan. Lipitor. Inderal -Chronic tinnitus with hard of hearing Has hearing aids. Has left the same at home Home medications renewed. Discussed with patient. Son at the bedside. Thank you Dr. Guzman Past Medical History Past Medical History: Cancer, COPD, Hearing Disorder / Deafness, Hyperlipidemia, Hypertension, Musculoskeletal Disorder, Prostate Disorder Additional Past Medical History / Comment(s): hx. skin cancer , [place] tinnitis, wears [place]atra hearing aides. History of Any Multi-Drug Resistant Organisms: None Reported Past Surgical History: Appendectomy, Heart Catheterization With Stent, Hernia Repair, Joint Replacement, Orthopedic Surgery Additional Past Surgical History / Comment(s): knee surg lft., bilateral shoulder surg., laser surgery and turp for prostate disorder, Left TKA Past Anesthesia/Blood Transfusion Reactions: No Reported Reaction Additional Past Anesthesia/Blood Transfusion Reaction / Comm: urine retention Date of Last Stent Placement:: 10/25/19 Smoking Status: Former smoker - Past Family History Mother Family Medical History: Cancer Sister(s) Family Medical History: Cancer Medications and Allergies Home Medications Medication Instructions Recorded Confirmed Type Diclofenac Potassium [Cataflam] 50 mg PO BID 08/15/14 11/25/22 History Atorvastatin Calcium 40 mg PO HS 07/08/22 11/25/22 History Losartan Potassium 100 mg PO HS 07/08/22 11/25/22 History Propranolol HCl [Inderal] 60 mg PO HS 07/08/22 11/25/22 History amLODIPine [Norvasc] 5 mg PO HS 07/08/22 11/25/22 History Allergies Allergy/AdvReac Type Severity Reaction Status Date / Time No Known Allergies Allergy Verified 11/25/22 11:47 Physical Exam Vitals: Vital Signs Temp Pulse Pulse Pulse Resp BP BP 11/26/22 16:00 97.6 F 85 18 145/74 11/26/22 15:00 60 16 136/81 11/26/22 14:30 72 16 143/80 11/26/22 14:00 61 16 153/81 11/26/22 13:45 65 16 151/80 11/26/22 13:30 67 16 147/80 11/26/22 13:15 58 L 16 159/88 11/26/22 12:59 58 L 20 152/87 11/26/22 12:40 57 L 16 171/86 11/26/22 12:25 57 L 16 162/87 11/26/22 12:10 53 L 16 152/96 11/26/22 11:55 96.9 F L 89 18 170/96 11/26/22 09:30 97.4 F L 85 18 165/89 Pulse Ox 11/26/22 16:00 95 11/26/22 15:00 100 11/26/22 14:30 100 11/26/22 14:00 100 11/26/22 13:45 100 11/26/22 13:30 100 11/26/22 13:15 100 11/26/22 12:59 100 11/26/22 12:40 98 11/26/22 12:25 93 L 11/26/22 12:10 97 11/26/22 11:55 97 11/26/22 09:30 95 Intake and Output 11/26/22 11/26/22 11/26/22 06:59 14:59 22:59 Intake Total 1050 750 Output Total 12 200 Balance 1038 550 Intake: IV 1050 750 Output: Urine 200 Estimated Blood Loss 12 Other: # Voids 1 Weight 82.8 kg 82.8 kg
[2022-11-26] MEDS ORDERED: ATORVASTATIN 40 MG TAB PO SCH (21:00)
[2022-11-26] MEDS ORDERED: PROPRANOLOL 20 MG TAB PO SCH (21:00)
[2022-11-26] MEDS ORDERED: LOSARTAN 50 MG TAB PO SCH (21:00)
[2022-11-27 07:38] VITALS: BP 102/64; PULSE 57; RESP 18; TEMP 98.4
[2022-11-27] MEDS ORDERED: ENOXAPARIN 40 MG/0.4 ML SYRINGE SQ SCH (09:00)
[2022-11-27] MEDS: SODIUM CHLORIDE 0.9% 1,000 ML IV SCH (09:31)
--- NOTE | 2022-11-27 16:07 | P.DS ---
Providers Date of admission: 11/26/22 08:59 Expected date of discharge: 11/27/22 Attending physician: Paramjit Yoo Consults: 11/26/22 15:30 Consult Physician Routine Consulting Provider: Jhoan Bang Consult Reason/Comments: medical management Do you want consulting provider notified?: Yes Primary care physician: Binh Rodrigues MD Hospital Course: The patient was evaluated preoperatively and found to have the diagnosis of left quadricep rupture. They underwent appropriate preoperative care and were willing to undergo the intended procedure. They underwent a successful left quadricep repair, were recovered appropriately and sent to the floor. While on the floor they worked with physical therapy, occupational therapy and nursing to enhance their recovery experience. Their pain was well controlled through their stay and they were started on appropriate medications, DVT ppx modalities, activity and dietary needs. Daily labs were monitored closely, and transfusions were only used when necessary. Medicine as well as other consulting services have made their input and have helped with our team approach and multidisciplinary care. PT milestones have been met and passed and they have made the recommendation of home for this patient and treating providers agree with this care path. The patient will be discharged home with appropriate medications, instructions and follow-up information and in stable condition. Patient Condition at Discharge: Good Plan - Discharge Summary Discharge Rx Participant: Yes New Discharge Prescriptions: New Enoxaparin [Lovenox] 40 mg SQ DAILY #30 each HYDROcodone/APAP 5-325MG [[place] 5-325] 1 tab PO Q6HR PRN #42 tab PRN Reason: Pain No Action Diclofenac Potassium [Cataflam] 50 mg PO BID Propranolol HCl [Inderal] 60 mg PO HS amLODIPine [Norvasc] 5 mg PO HS Losartan Potassium 100 mg PO HS Atorvastatin Calcium 40 mg PO HS Discharge Medication List Diclofenac Potassium [Cataflam] 50 mg PO BID 08/15/14 [History] Atorvastatin Calcium 40 mg PO HS 07/08/22 [History] Losartan Potassium 100 mg PO HS 07/08/22 [History] Propranolol HCl [Inderal] 60 mg PO HS 07/08/22 [History] amLODIPine [Norvasc] 5 mg PO HS 07/08/22 [History] Enoxaparin [Lovenox] 40 mg SQ DAILY #30 each 11/27/22 [Rx] HYDROcodone/APAP 5-325MG [[place] 5-325] 1 tab PO Q6HR PRN #42 tab 11/27/22 [Rx] Follow up Appointment(s)/Referral(s): Erasmo Posada, PAC [PHYSICIAN [facility] DESIGNER] - 12/12/22 10:30 am Patient Instructions/Handouts: *Surgery [facility] - (Anesthesia) Discharge Instructions Outpatient Surgery, Knee Immobilizer (ED), Knee Immobilizer (DC) Discharge Disposition: HOME WITH HOME HEALTH SERVICES
--- NOTE | 2022-11-27 16:19 | P.PN ---
Subjective Progress Note Date: 11/27/22 Principal diagnosis: left quadricep rupture Patient seen and examined this afternoon. Patient is sitting up in chair with legs elevated. Immobilizer is in place on left lower extremity, this has been taken off to assess the surgical dressing. Dressing is CDI. Patient reports he has been up and about without difficulty. He reports his pain is managed on current regimen. He is looking forward to going home. Patient did request that he was able to use his immobilizer from home, informed him that it was reasonable. No acute concerns at this time. Objective - Vital Signs Vital signs: Vital Signs Temp 98.4 F 11/27/22 07:08 Pulse 57 L 11/27/22 07:08 Resp 18 11/27/22 07:08 BP 102/64 11/27/22 07:08 Pulse Ox 90 L 11/27/22 10:15 FiO2 Intake & Output 11/26/22 11/27/22 11/27/22 18:59 06:59 18:59 Intake Total 1800 118 Output Total 212 750 Balance 1588 -750 118 Weight 82.8 kg Intake: IV 1800 Oral 118 Output: Urine 200 750 Estimated Blood Loss 12 Other: # Voids 1 - Exam Left lower extremity: Incision is clean, dry, and intact. The exofin fusion tape is in good co ndition. There is minimal soft tissue swelling and ecchymosis surrounding the medial and lateral aspects of the incision. Calf is soft, no tenderness with palpation. Plantar flexion, dorsiflexion, EHL, FHL are intact. Sensory exam to light touch throughout the extremity is intact, dorsal pedis pulses 2+. Assessment and Plan Assessment: Post Op day 1: Left quadricep repair 1. Left quadricep rupture Plan: 2. Appreciate medical management 3. Pain management - [place] 4. DVT prophylaxis - Lovenox 5. GI prophylaxis - senna 6. PT/OT - weightbearing as tolerated with walker 7. Encourage incentive spirometer use 8. Discharge planning - plan for discharge home today with health services
--- NOTE | 2022-11-27 16:39 | P.PN ---
Progress Note - Text Progress Note Date: 11/27/22 - Chief Complaint Left knee tendon repair - History of Present Illness This is a pleasant 77-year-old patient follows with Dr. Binh Rodrigues. Chronic stable medical conditions include COPD, hard of hearing, hyperlipidemia, hypertension, chronic tinnitus, CAD with stent about 3 years ago[address] with Dr. oWng. Patient has undergone left knee quadriceps tendon repair. Postprocedure left leg in a brace. Pain control. No nausea vomiting. 11/27/2026: Feeling better. Tolerating diet. Pain better controlled. Hold p.m. dose of amlodipine. 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 Smoked a pack a day for about 30 years stopped about 33 years ago. . Physical examination: VITAL SIGNS: 98.4, 57, 18, 102/64, 93% on room air GENERAL: BMI 24.8, sitting up, comfortable EYES: Pupils equal. Conjunctiva normal. HEENT: External appearance of nose and ears normal, oral cavity grossly normal. Decreased hearing NECK: JVD not raised; masses not palpable. HEART: First and second heart sounds are normal; no edema. LUNGS: Respiratory rate normal; clear to auscultation. ABDOMEN: Soft, nontender, liver spleen not palpable, no masses palpable. PSYCH: Alert and oriented x3; mood and affect normal. MUSCULOSKELETAL:No Clubbing/cyanosis;muscles-grossly intact. Left leg in a brace INVESTIGATIONS, reviewed in the clinical context: Blood work from 08/19/2022: White count 14.9 hemoglobin 14 platelets 219 sodium 138 potassium 4.9 creatinine 0.9 Assessment and plan: -Left knee open quadriceps tendon repair by Dr. Yoo. Left leg in a brace. Pain control. Subcu Lovenox for DVT prophylaxis -COPD in a prior smoker Currently stable. Use albuterol when necessary. -Essential hypertension Losartan. Inderal. Continue to hold amlodipine for now. -CAD with a prior history of stent Losartan. Lipitor. Inderal -Chronic tinnitus with hard of hearing Has hearing aids. Has left the same at home Discussed with patient. Patient was discharged later today, I was not available the same. I did call the patient at home and told him not to take his amlodipine to list systolic blood pressure goes above 140. Check blood pressure daily. Thank you Dr. Guzman
[2022-11-27] MEDS ORDERED: amLODIPine 5 MG TAB PO SCH (21:00)
== END 2022-11-27 14:21 | disposition home health service (06) ==
LOC: OR 08:58 → 4SSUR 08:59 → OR 11-27 08:23
PROVIDERS: ADMIT Orthopaedic Surgery; ATTEND Orthopaedic Surgery
DX: S76.112A Strain of left quadriceps muscle, fascia and tendon, initial encounter (principal); M79.81 Nontraumatic hematoma of soft tissue; I10 Essential (primary) hypertension; E78.5 Hyperlipidemia, unspecified; Z96.652 Presence of left artificial knee joint; Z98.890 Other specified postprocedural states; J44.9 Chronic obstructive pulmonary disease, unspecified; H91.90 Unspecified hearing loss, unspecified ear; H93.19 Tinnitus, unspecified ear; I25.10 Atherosclerotic heart disease of native coronary artery without angina pectoris; Z95.5 Presence of coronary angioplasty implant and graft; Z87.891 Personal history of nicotine dependence; M19.90 Unspecified osteoarthritis, unspecified site; Z97.2 Presence of dental prosthetic device (complete) (partial); Z79.899 Other long term (current) drug therapy
CPT/HCPCS: 94760; 97162; 27385; G0378; J2250; J0330; J0360; J1200; J1100; J2710; J0690 ×2; J2405; J1650; J3010; J1170 ×2; J2704; J2001; J1920

== ENCOUNTER 2024-09-25 06:43 | Inpatient (IN) | payer MEDICARE ==
--- NOTE | 2024-09-25 06:56 | ED ---
General Adult HPI - General Stated complaint: Chest Pain Time Seen by Provider: 09/25/24 06:46 Source: patient, EMS, RN notes reviewed Mode of arrival: EMS Limitations: no limitations - History of Present Illness Initial comments: 79-year-old male presents emergency department via EMS chief complaint of chest pain. Patient states that started around 2 AM. Patient states centralized sternal chest pain nonradiating. He states he does have 1 prior stent from September 2019. Patient sees Dr. Starr has a history aspirate, nitro without relief he states he did receive fentanyl. Patient denies any similar reflux no history of peptic ulcers. Patient denies any back pain, lower extremity weakness paresthesias. Denies any diaphoretic episodes. - Related Data Home Medications Medication Instructions Recorded Confirmed Atorvastatin Calcium 40 mg PO HS 07/08/22 09/25/24 Losartan Potassium 100 mg PO HS 07/08/22 09/25/24 amLODIPine [Norvasc] 5 mg PO HS 07/08/22 09/25/24 Clopidogrel [Plavix] 75 mg PO HS 09/25/24 09/25/24 Diclofenac Sodium 100 mg PO HS 09/25/24 09/25/24 Propranolol LA [Inderal LA] 60 mg PO HS 09/25/24 09/25/24 Allergies Allergy/AdvReac Type Severity Reaction Status Date / Time No Known Allergies Allergy Verified 09/25/24 09:47 Review of Systems ROS Statement: Those systems with pertinent positive or pertinent negative responses have been documented in the HPI. ROS Other: All systems not noted in ROS Statement are negative. Past Medical History Past Medical History: Cancer, COPD, Hearing Disorder / Deafness, Hyperlipidemia, Hypertension, Musculoskeletal Disorder, Prostate Disorder Additional Past Medical History / Comment(s): hx. skin cancer , cleopatra tinnitis, wears cleopatra hearing aides. History of Any Multi-Drug Resistant Organisms: None Reported Past Surgical History: Appendectomy, Heart Catheterization With Stent, Hernia Repair, Joint Replacement, Orthopedic Surgery Additional Past Surgical History / Comment(s): knee surg lft., bilateral shoulder surg., laser surgery and turp for prostate disorder, Left TKA Past Anesthesia/Blood Transfusion Reactions: No Reported Reaction Additional Past Anesthesia/Blood Transfusion Reaction / Comment(s): urine retention Date of Last Stent Placement:: 10/25/19 Smoking Status: Former smoker - Past Family History Mother Family Medical History: Cancer Sister(s) Family Medical History: Cancer General Exam Limitations: no limitations General appearance: alert, in no apparent distress Head exam: Present: atraumatic, normocephalic, normal inspection Eye exam: Present: normal appearance, PERRL, EOMI. Absent: scleral icterus, conjunctival injection, periorbital swelling ENT exam: Present: normal exam, normal oropharynx, mucous membranes moist Neck exam: Present: normal inspection, full ROM. Absent: tenderness, meningismus, lymphadenopathy Respiratory exam: Present: normal lung sounds bilaterally. Absent: respiratory distress, wheezes, rales, rhonchi, stridor Cardiovascular Exam: Present: regular rate, normal rhythm, normal heart sounds. Absent: systolic murmur, diastolic murmur, rubs, gallop, clicks GI/Abdominal exam: Present: soft, normal bowel sounds. Absent: distended, tenderness, guarding, rebound, rigid Back exam: Absent: CVA tenderness (R), CVA tenderness (L) Course Vital Signs 09/25/24 09/25/24 09/25/24 06:46 07:11 09:00 Temperature 97.5 F L Pulse Rate 47 L 72 52 L Respiratory 18 16 16 Rate Blood Pressure 157/87 173/98 149/82 O2 Sat by Pulse 95 94 L 95 Oximetry 09/25/24 10:57 Temperature 98 F Pulse Rate 61 Respiratory 16 Rate Blood Pressure 151/88 O2 Sat by Pulse 94 L Oximetry EKG Findings - EKG Comments: EKG Findings:: EKG 6: 56 sinus bradycardia first-degree block rate of 48 ND 228 QRS 94 QT/QTc 475/442 - EKG Results: EKG: interpreted by [facility] Medical Decision Making - Medical Decision Making Was pt. sent in by a medical professional or institution (, PA, EMPLOYEE SERVICES MANAGER, urgent care, hospital, or prison...) When possible be specific @ -No Did you speak to anyone other than the patient for history (EMS, parent, family, police, friend...)? What history was obtained from this source @ -No Did you review nursing and triage notes (agree or disagree)? Why? @ -I reviewed and agree with nursing and triage notes Were old charts reviewed (outside hosp., previous admission, EMS record, old EKG, old radiological studies, urgent care reports/EKG's, prison records)? Report findings @ -No old charts were reviewed Differential Diagnosis (chest pain, altered mental status, abdominal pain women, abdominal pain men, vaginal bleeding, weakness, fever, dyspnea, syncope, headache, dizziness, GI bleed, back pain, seizure, CVA, palpatations, mental health, musculoskeletal)? @ -[Differential Chest Pain: Stable Angina, Unstable Angina, STEMI, NSTEMI Aortic Dissection, Pneumothorax, Musculoskeletal, Esophageal Spasm GERD, Cholecystitis, Pancreatitis, Zoster, this is not meant to be an all-inclusive list. EKG interpreted by me (3pts min.). @ -As above X-rays interpreted by me (1pt min.). @ -Chest x-ray showed possible pulmonary mass CT interpreted by me (1pt min.). @ -CT chest with abdomen pelvis showing wiling congenital changes of mediastinum no acute mass probable enlarged gallbladder with minimal inflammatory changes no thickening U/S interpreted by me (1pt. min.). @Ultrasound gallbladder showing distended gallbladder no gallbladder wall thickening or inflammatory changes What testing was considered but not performed or refused? (CT, X-rays, U/S, labs)? Why? @ -None What meds were considered but not given or refused? Why? @ -None Did you discuss the management of the patient with other professionals (professionals i.e. , PA, EMPLOYEE SERVICES MANAGER, lab, RT, psych nurse, high school social science teacher, salesperson pianos and organs, teacher, railway patrol officer, transplant case manager)? Give summary @ -Dr. Bang for admission given chest pain, with distended gallbladder he recommends surgery consult, antibiotics follow-up with cardiology recommendations. Was smoking cessation discussed for >3mins.? @ -No Was critical care preformed (if so, how long)? @ -No Were there social determinants of health that impacted care today? How? (Homelessness, low income, unemployed, alcoholism, drug addiction, transportation, low edu. Level, literacy, decrease access to med. care, [facility], rehab)? @ -No Was there de-escalation of care discussed even if they declined (Discuss DNR or withdrawal of care, Hospice)? DNR status @ -No What co-morbidities impacted this encounter? (DM, HTN, Smoking, COPD, CAD, Cancer, CVA, ARF, Chemo, Hep., AIDS, mental health diagnosis, sleep apnea, morbid obesity)? @ -None Was patient admitted / discharged? Hospital course, mention meds given and route, prescriptions, significant lab abnormalities, going to OR and other pertinent info. @ -Admitted patient has enlarged gallbladder, chest pain. This may be cardiac versus gallbladder nature. Patient will be seen by surgeon possible cardiology evaluation. Undiagnosed new problem with uncertain prognosis? @ -No Drug Therapy requiring intensive monitoring for toxicity (Heparin, Nitro, Insulin, Cardizem)? @ -No Were any procedures done? @ -No Diagnosis/symptom? @ -Chest pain, Lamine gallbladder Acute, or Chronic, or Acute on Chronic? @ -Acute Uncomplicated (without systemic symptoms) or Complicated (systemic symptoms)? @ -Complicated Side effects of treatment? @ -No Exacerbation, Progression, or Severe Exacerbation? @ -No Poses a threat to life or bodily function? How? (Chest pain, [place], [place], pneumonia, PE, COPD, DKA, ARF, appy, cholecystitis, CVA, Diverticulitis, Homicidal, Suicidal, threat to staff... and all critical care pts) @ -Yes possible surgery, chest pain ACS risk to cardiac function - Lab Data Result diagrams: 09/25/24 06:55 09/25/24 06:55 Lab Results 09/25/24 09/25/24 09/25/24 Range/Units 06:55 06:55 06:55 WBC 15.21 H (4.50-10.00) 10*3/uL RBC 4.92 (4.40-5.60) 10*6/uL Hgb 14.9 (13.0-17.0) g/dL Hct 42.3 (39.6-50.0) % MCV 86.0 (80.0-97.0) fL MCH 30.3 (27.0-32.0) pg MCHC 35.2 (32.0-37.0) g/dL Plt Count 311 (140-440) 10*3/uL MPV 9.9 (9.5-12.2) fL Immature Gran % (Auto) 0.3 % Neutrophils % 77.5 % Lymphocytes % 13.3 % Monocytes % 4.3 % Eosinophils % 4.1 % Basophils % 0.5 % Immature Gran # 0.04 (0.00-0.04) 10*3/uL Neutrophils # 11.78 H (1.80-7.70) 10*3/uL Lymphocytes # 2.03 (0.90-5.00) 10*3/uL Monocytes # 0.66 (0.20-1.00) 10*3/uL Eosinophils # 0.62 H (0.04-0.35) 10*3/uL Basophils # 0.08 (0.00-0.10) 10*3/uL PT 10.2 (10.0-12.5) sec INR 0.9 (<1.2) APTT 21.5 L (22.0-30.0) sec Sodium 141 (137-145) mmol/L Potassium 4.5 (3.5-5.1) mmol/L Chloride 107 (98-107) mmol/L Carbon Dioxide 28 (22-30) mmol/L Anion Gap 6 mmol/L BUN 20 (9-20) mg/dL Creatinine 0.89 (0.66-1.25) mg/dL Est GFR (CKD-EPI)AfAm >90 (>60 ml/min/1.73 sqM) Est GFR (CKD-EPI)NonAf 82 (>60 ml/min/1.73 sqM) Glucose 147 H (74-99) mg/dL Calcium 9.5 (8.4-10.2) mg/dL Magnesium 2.0 (1.6-2.3) mg/dL Total Bilirubin 1.3 (0.2-1.3) mg/dL AST 26 (17-59) U/L ALT 24 (4-49) U/L Alkaline Phosphatase 106 (38-126) U/L Troponin I (0.000-0.034) ng/mL Total Protein 6.8 (6.3-8.2) g/dL Albumin 4.3 (3.5-5.0) g/dL Lipase 38 (23-300) U/L 09/25/24 Range/Units 06:55 WBC (4.50-10.00) 10*3/uL RBC (4.40-5.60) 10*6/uL Hgb (13.0-17.0) g/dL Hct (39.6-50.0) % MCV (80.0-97.0) fL MCH (27.0-32.0) pg MCHC (32.0-37.0) g/dL Plt Count (140-440) 10*3/uL MPV (9.5-12.2) fL Immature Gran % (Auto) % Neutrophils % % Lymphocytes % % Monocytes % % Eosinophils % % Basophils % % Immature Gran # (0.00-0.04) 10*3/uL Neutrophils # (1.80-7.70) 10*3/uL Lymphocytes # (0.90-5.00) 10*3/uL Monocytes # (0.20-1.00) 10*3/uL Eosinophils # (0.04-0.35) 10*3/uL Basophils # (0.00-0.10) 10*3/uL PT (10.0-12.5) sec INR (<1.2) APTT (22.0-30.0) sec Sodium (137-145) mmol/L Potassium (3.5-5.1) mmol/L Chloride (98-107) mmol/L Carbon Dioxide (22-30) mmol/L Anion Gap mmol/L BUN (9-20) mg/dL Creatinine (0.66-1.25) mg/dL Est GFR (CKD-EPI)AfAm (>60 ml/min/1.73 sqM) Est GFR (CKD-EPI)NonAf (>60 ml/min/1.73 sqM) Glucose (74-99) mg/dL Calcium (8.4-10.2) mg/dL Magnesium (1.6-2.3) mg/dL Total Bilirubin (0.2-1.3) mg/dL AST (17-59) U/L ALT (4-49) U/L Alkaline Phosphatase (38-126) U/L Troponin I <0.012 (0.000-0.034) ng/mL Total Protein (6.3-8.2) g/dL Albumin (3.5-5.0) g/dL Lipase (23-300) U/L Disposition Clinical Impression: Chest pain, Gallbladder dilatation Disposition: ADMITTED IP TO THIS HOSP Condition: Fair Time of Disposition: 09:41
[2024-09-25] MEDS: SODIUM CHLORIDE 0.9% 500 ML 500 ML IV ONE (07:10)
[2024-09-25] MEDS: PANTOPRAZOLE 40 MG/10 ML VIAL IVP STA (07:11)
[2024-09-25 07:12] LABS: Basophils # (A) 0.08 10*3/uL (0.00-0.10); Basophils % (A) 0.5 %; Eosinophils # (A) 0.62 10*3/uL (0.04-0.35); Eosinophils % (A) 4.1 %; HCT 42.3 % (39.6-50.0); HGB 14.9 g/dL (13.0-17.0); Lymphocytes # (A) 2.03 10*3/uL (0.90-5.00); Lymphocytes % (A) 13.3 %; MCH 30.3 pg (27.0-32.0); MCHC 35.2 g/dL (32.0-37.0); Mean Platelet Volume 9.9 fL (9.5-12.2); Monocytes # (A) 0.66 10*3/uL (0.20-1.00); Monocytes % (A) 4.3 %; Neutrophils # (A) 11.78 10*3/uL (1.80-7.70); Neutrophils % (A) 77.5 %; Platelet Count 311 10*3/uL (140-440); RBC 4.92 10*6/uL (4.40-5.60); RDW 12.8 % (11.5-14.5); WBC 15.21 10*3/uL (4.50-10.00)
--- NOTE | 2024-09-25 07:13 | XR ---
EXAMINATION TYPE: XR chest 2V DATE OF EXAM: 09/25/2024 7:07 AM COMPARISON: Chest radiographs from TECHNIQUE: XR chest 2V . CLINICAL INDICATION:Male, 79 years old with history of Chest Pain; FINDINGS: Lungs/Pleura: There is no evidence of pleural effusion, focal consolidation, or pneumothorax. Pulmonary vascularity: Unremarkable. Heart/mediastinum: Widening of the superior mediastinum on the frontal radiograph with opacity within the anterior mediastinum on lateral view. The heart is borderline enlarged. Atherosclerotic calcifi cations are seen in the aorta. Musculoskeletal: No acute osseous pathology. Right shoulder arthropathy. IMPRESSION: Findings concerning for large anterior mediastinal mass. Recommend further evaluation with CT chest w ith contrast. [facility], , 09/25/2024 7:11 AM
[2024-09-25] MEDS: HYDROmorphone 0.5 MG/0.5 ML SYRINGE IVP STA (07:30)
[2024-09-25 07:33] LABS: ALT 24 U/L (4-49); AST 26 U/L (17-59); African American GFR (CKD) >90 (>60 ml/min/1.73 sqM); Albumin 4.3 g/dL (3.5-5.0); Alkaline Phosphatase 106 U/L (38-126); Anion Gap 6 mmol/L; Blood Urea Nitrogen 20 mg/dL (9-20); Calcium 9.5 mg/dL (8.4-10.2); Carbon Dioxide 28 mmol/L (22-30); Chloride 107 mmol/L (98-107); Glucose 147 mg/dL (74-99); Lipase 38 U/L (23-300); Non-African American GFR(CKD) 82 (>60 ml/min/1.73 sqM); Potassium 4.5 mmol/L (3.5-5.1); Sodium 141 mmol/L (137-145); Total Bilirubin 1.3 mg/dL (0.2-1.3); Total Protein 6.8 g/dL (6.3-8.2)
[2024-09-25 07:59] LABS: INR 0.9 (<1.2); Prothrombin Time 10.2 sec (10.0-12.5)
[2024-09-25 08:03] LABS: Partial Thromboplastin Time 21.5 sec (22.0-30.0)
[2024-09-25] MEDS: ONDANSETRON 4 MG/2 ML VIAL IVP STA ×2 (08:15→10:34)
--- NOTE | 2024-09-25 08:43 | CT ---
EXAMINATION TYPE: CT ChestAbdPelvis w con CT DLP: 1096.4 mGycm, Automated exposure control for dose reduction was used. DATE OF EXAM: 09/25/2024 8:23 AM COMPARISON: Chest radiograph from same day. CLINICAL INDICATION:Male, 79 years old with history of Abnormal x-ray, chest pain, abdominal pain; PH H, epigastric pain Technique: Multiple axial images of the chest, abdomen, and pelvis were obtained following the intrav enous administration of 100 mL Isovue-300. Two-dimensional coronal and sagittal reconstructions were obtained. Findings: CHEST: LUNGS/ PLEURA: No pleural effusion, pneumothorax, focal consolidation. Bibasilar subsegmental atelect asis. Mild centrilobular emphysematous changes. No suspicious pulmonary nodule or mass. AIRWAY: Patent and unremarkable.. HEART: Cardiomegaly is demonstrated. . No pericardial effusion. Moderate coronary artery calcificatio ns present. Most pronounced within the LAD. MEDIASTINUM: No evidence of adenopathy. No evidence for mediastinal mass. There is some anatomic wide zen of the superior mediastinum. VASCULATURE: No aortic aneurysm. Mild atherosclerotic calcification of the aorta and its branches. T here is some tortuosity of the right subclavian artery and other great vessels. No central pulmonary embolism. MUSCULOSKELETAL: No acute osseous abnormalities. No aggressive osseous lesion. SOFT TISSUES/LYMPH NODES: Mild bilateral gynecomastia. LOWER NECK: No significant findings. ABDOMEN: ABDOMEN LIVER: Subcentimeter right hepatic lobe hypodense lesion likely representing a cyst. GALLBLADDER AND BILE DUCTS: Mildly distended gallbladder with some subtle surrounding fat stranding. No biliary ductal dilatation. PANCREAS: Lipomatous pseudohypertrophy changes. SPLEEN: Unremarkable. ADRENAL GLANDS: Unremarkable. KIDNEYS AND URETERS: No evidence of hydronephrosis or renal calculus. The kidneys enhance symmetrical ly. Contrast is demonstrated within both collecting systems and proximal ureters on the delayed phase . PELVIS BLADDER: Unremarkable REPRODUCTIVE: Unremarkable. ABDOMEN & PELVIS STOMACH AND BOWEL: Small hiatal hernia. Proximal duodenal diverticula.Small bowel feces sign without dilated small bowel. Sigmoid diverticulosis without evidence for acute diverticulitis. No focal bowel wall thickening or surrounding inflammatory changes. The appendix is not identified. No evidence of bowel obstruction. PERITONEUM: No evidence of pneumoperitoneum or free fluid. VASCULATURE: Mild atherosclerotic calcifications are present throughout the abdominal aorta and its b ranches. No abdominal aortic aneurysm. Left-sided pelvic phleboliths. MUSCULOSKELETAL: No acute osseous abnormalities. Multilevel degenerative disc disease. Grade 1 retrol isthesis of L2 on L3. No aggressive osseous lesion. LYMPH NODES: No gross evidence for lymphadenopathy. SOFT TISSUE/ABDOMINAL WALL: Left inguinal hernia containing fat. High riding left testicle partially visualized. IMPRESSION: 1. Distended gallbladder with subtle surrounding fat stranding. Correlate clinically for acute cholec ystitis with consideration for ultrasound. 2. Small bowel feces sign without evidence for obstruction or dilatation. Findings suggest slow bowel transit. 3. No evidence for mediastinal mass or adenopathy. Findings on radiograph corresponds to anatomic wid ening of the superior mediastinum with tortuosity of the great vessels. 4. Sigmoid diverticulosis without evidence for acute diverticulitis. 5. Small hiatal hernia. 6. Mild emphysematous changes. [facility], , 09/25/2024 8:40 AM
[2024-09-25] MEDS: METOCLOPRAMIDE 5 MG/ML 2 ML VIAL IVP STA (08:57)
--- NOTE | 2024-09-25 09:24 | US ---
EXAMINATION TYPE: US gallbladder DATE OF EXAM: 09/25/2024 COMPARISON: Same day CT CLINICAL INDICATION: Male, 79 years old with history of pain; Pain TECHNIQUE: Grayscale and color Doppler imaging of the right upper quadrant was performed. FINDINGS: EXAM MEASUREMENTS: Liver Length: 11.3 cm Gallbladder Wall: 0.3 cm CBD: 0.5 cm Right Kidney: 10.2 x 4.9 x 4.7 cm RAIL TRACTOR OPERATOR NOTES: Very gassy pt- most views obtained intercostally Pancreas: Obscured by bowel gas Liver: Visualized portions appeared wnl, visualized mostly intercostally Gallbladder: Distended, wall thickness upper limits of normal, lumen clear Evidence for sonographic Ortiz's sign: No CBD: wnl Right Kidney: Cortical thinning, no evidence of hydro, lower pole gassed out The pancreas is obscured by overlying bowel gas. The visualized liver is unremarkable without focal l esion. Distended gallbladder with out wall thickening or gallstones. No pericholecystic fluid. Negati ve sonographic Ortiz sign. Common bile duct is within normal limits. Right kidney demonstrates corti becca thinning without evidence for hydronephrosis or visualized solid mass or calculus. IMPRESSION: 1. Distended gallbladder without ultrasound evidence for acute cholecystitis. 2. Findings suggestive of chronic medical renal disease involving the right kidney. [facility], , 09/25/2024 9:22 AM
[2024-09-25] MEDS ORDERED: NITROGLYCERIN SL TABS 0.4 MG TAB SUBLINGUAL PRN (09:45)
--- NOTE | 2024-09-25 11:57 | P.HPIM ---
History of Present Illness H&P Date: 09/25/24 Chief Complaint: Chest pain Pleasant 79-year-old patient who follows with Dr. Inna Zaragoza. Chronic medical conditions include COPD, hard of hearing with hearing aid, hypertension, hyperlipidemia, DJD, tinnitus, BPH. Also has CAD with stent placed around 220. 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 Around 3 AM patient woke up with pain what he said was localized chest but actually was more in the upper abdomen just right of the epigastrium. Pretty severe. Patient threw up at least 4 times. Then started having right retching after that. No fever no chills. Pain remains localized. Did break out in a sweat. No dizziness no lightheadedness. Patient baseline is fairly active and last breast dose was about 2 years ago. Patient is accompanied by his in the ER. Review of systems: GEN.: Tired EYES: None HEENT: Decreased hearing NECK: None RESPIRATORY: None CARDIOVASCULAR: As above e GASTROINTESTINAL: As above GENITOURINARY: None MUSCULOSKELETAL: [Joint pains LYMPHATICS: None HEMATOLOGICAL: None PSYCHIATRY: None NEUROLOGICAL: None Social history: . Stopped smoking in 1989. Has done multiple jobs including being a [employer] person. Alcohol rarely Physical examination: VITAL SIGNS: 98, 61, 16, 151 x 88, 94% room air GENERAL: BMI 27, laying in bed awake not in distress. EYES: Pupils equal. Conjunctiva geno l. HEENT: External appearance of nose and ears normal, oral cavity grossly normal. Decreased hearing NECK: JVD not raised; masses not palpable. HEART: First and second heart sounds are normal; no edema. LUNGS: Respiratory rate normal; decreased breath sound. ABDOMEN: Soft, right upper quadrant localized tenderness just lateral to the epigastrium., liver spleen not palpable, no masses palpable. PSYCH: Alert and oriented x3; mood and affect geno l. MUSCULOSKELETAL:No Clubbing/cyanosis;muscles-grossly intact. OA NEUROLOGICAL: Cranial nerves grossly intact; no facial asymmetry, power and sensation grossly intact. LYMPHATICS: No lymph nodes palpable in the axilla and neck INVESTIGATIONS, reviewed in the clinical context: September 25, 2024: White count 15.2 hemoglobin 14.9 platelets 3 1 left shift sodium 141 potassium 4.5 BUN 20 creatinine 0.89 Troponin I less than 0.012 EKG tracing personally reviewed by me-normal sinus rhythm. Unremarkable Chest x-ray film personally reviewed by me-portable. Poor inspiration film CT chest abdomen: Distended gallbladder with subtle surrounding fat stranding. Small bowel feces sign without evidence of obstruction or dilatation. Sigmoid diverticulosis. Small reactive hernia. Ultrasound gallbladder: Distended gallbladder without wall thickening or gallstones. Common bile duct within normal limits. Right kidney shows cortical thinning without evidence of hydronephrosis. Assessment plan -Acute presentation with sudden onset of pain in the upper epigastrium on the right side. Accompanied by bouts of vomiting. Significant tenderness. Elevated white count. Has a distended gallbladder on the CT scan with pericholecystic fluid. No CBD dilatation no gallstones reported.: Possibly acalculous cholecystitis with acute presentation IV Zosyn. Clear liquid diet. General surgery consulted. If patient is to go for surgery, patient is medically stable to proceed for surgery. Has no active cardiac symptoms. Good exercise tolerance. Low to moderate perioperative cardiovascular risk. - CAD with stent in 2019. 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 Inderal LA. Plavix. -Essential hypertension Amlodipine 5 mg nightly. Inderal LA 60 mg nightly. Losartan 100 mg nightly. -Hyperlipidemia Lipitor 40 mg nightly - Primary osteoarthritis multiple joints Hold diclofenac sodium for now. - Hard of hearing, has hearing aids - Full code Care was discussed with patient his and sister at the bedside. Will keep on clear liquids. General surgery consulted. Home medication resumed. IV Zosyn. Past Medical History Past Medical History: Cancer, COPD, Hearing Disorder / Deafness, Hyperlipidemia, Hypertension, Musculoskeletal Disorder, Prostate Disorder Additional Past Medical History / Comment(s): hx. skin cancer , cleopatra tinnitis, wears cleopatra hearing aides. History of Any Multi-Drug Resistant Organisms: None Reported Past Surgical History: Appendectomy, Heart Catheterization With Stent, Hernia Repair, Joint Replacement, Orthopedic Surgery Additional Past Surgical History / Comment(s): knee surg lft., bilateral shoulder surg., laser surgery and turp for prostate disorder, Left TKA Past Anesthesia/Blood Transfusion Reactions: No Reported Reaction Additional Past Anesthesia/Blood Transfusion Reaction / Comment(s): urine retention Date of Last Stent Placement:: 10/25/19 Past Psychological History: No Psychological Hx Reported Smoking Status: Former smoker Past Alcohol Use History: Rare Additional Past Alcohol Use History / Comment(s): quit 1989 Past Drug Use History: None Reported - Past Family History Mother Family Medical History: Cancer Sister(s) Family Medical History: Cancer Medications and Allergies Home Medications Medication Instructions Recorded Confirmed Type Atorvastatin Calcium 40 mg PO HS 07/08/22 09/25/24 History Losartan Potassium 100 mg PO HS 07/08/22 09/25/24 History amLODIPine [Norvasc] 5 mg PO HS 07/08/22 09/25/24 History Clopidogrel [Plavix] 75 mg PO HS 09/25/24 09/25/24 History Diclofenac Sodium 100 mg PO HS 09/25/24 09/25/24 History Propranolol LA [Inderal LA] 60 mg PO HS 09/25/24 09/25/24 History Allergies Allergy/AdvReac Type Severity Reaction Status Date / Time No Known Allergies Allergy Verified 09/25/24 09:47 Physical Exam Vitals: Vital Signs Temp Pulse Resp BP Pulse Ox 09/25/24 10:57 98 F 61 16 151/88 94 L 09/25/24 09:00 52 L 16 149/82 95 09/25/24 07:11 72 16 173/98 94 L 09/25/24 06:46 97.5 F L 47 L 18 157/87 95 Intake and Output 09/24/24 09/25/24 09/25/24 22:59 06:59 14:59 Other: Weight 90.265 kg 90.265 kg Results CBC & Chem 7: 09/25/24 06:55 09/25/24 06:55 Labs: Abnormal Lab Results - Last 24 Hours (Table) 09/25/24 09/25/24 09/25/24 Range/Units 06:55 06:55 06:55 WBC 15.21 H (4.50-10.00) 10*3/uL Neutrophils # 11.78 H (1.80-7.70) 10*3/uL Eosinophils # 0.62 H (0.04-0.35) 10*3/uL APTT 21.5 L (22.0-30.0) sec Glucose 147 H (74-99) mg/dL Thrombosis Risk Factor Assmnt - Choose All That Apply Each Risk Factor Represents 3 Points: Age 75 years or older Thrombosis Risk Factor Assessment Total Risk Factor Score: 3 Thrombosis Risk Factor Assessment Level: Moderate Risk
[2024-09-25] MEDS ORDERED: MORPHINE SULFATE 4 MG/ML SYRINGE IVP PRN (12:19)
[2024-09-25] MEDS: ENOXAPARIN 40 MG/0.4 ML SYRINGE SQ SCH (13:05)
[2024-09-25] MEDS: PIPERACILLIN-TAZOBACTAM 3.375 GM in SODIUM CHLORIDE 0.9% 100 ML IVPB SCH (13:09)
--- NOTE | 2024-09-25 16:24 | P.GSCN ---
History of Present Illness History of present illness: Patient is a 79-year-old male presenting to [facility] with complaints of all of a sudden epigastric/chest pain that started around 4 AM this morning. Patient admits to associated nausea and vomiting with continued retching along with fevers and chills. Patient denies this ever happening before. Patient denies previous history of gallstone disease or severe acid reflux. Patient denies recent weight loss. Patient denies pain around food consumption. General surgery was consulted to rule out gallbladder pathology. Past Medical History Past Medical History: Cancer, COPD, Hearing Disorder / Deafness, Hyperlipidemia, Hypertension, Musculoskeletal Disorder, Prostate Disorder Additional Past Medical History / Comment(s): hx. skin cancer , cleopatra tinnitis, wears cleopatra hearing aides. History of Any Multi-Drug Resistant Organisms: None Reported Past Surgical History: Appendectomy, Heart Catheterization With Stent, Hernia Repair, Joint Replacement, Orthopedic Surgery Additional Past Surgical History / Comment(s): knee surg lft., bilateral shoulder surg., laser surgery and turp for prostate disorder, Left TKA Past Anesthesia/Blood Transfusion Reactions: No Reported Reaction Additional Past Anesthesia/Blood Transfusion Reaction / Comm: urine retention Date of Last Stent Placement:: 10/25/19 Past Psychological History: No Psychological Hx Reported Smoking Status: Former smoker Past Alcohol Use History: Rare Additional Past Alcohol Use History / Comment(s): quit 1989 Past Drug Use History: None Reported - Past Family History Mother Family Medical History: Cancer Sister(s) Family Medical History: Cancer Medications and Allergies Home Medications Medication Instructions Recorded Confirmed Type Atorvastatin Calcium 40 mg PO HS 07/08/22 09/25/24 History Losartan Potassium 100 mg PO HS 07/08/22 09/25/24 History amLODIPine [Norvasc] 5 mg PO HS 07/08/22 09/25/24 History Clopidogrel [Plavix] 75 mg PO HS 09/25/24 09/25/24 History Diclofenac Sodium 100 mg PO HS 09/25/24 09/25/24 History Propranolol LA [Inderal LA] 60 mg PO HS 09/25/24 09/25/24 History Allergies Allergy/AdvReac Type Severity Reaction Status Date / Time No Known Allergies Allergy Verified 09/25/24 09:47 Surgical - Exam Osteopathic Statement: *. No significant issues noted on an osteopathic structural exam other than those noted in the History and Physical/Consult. Vital Signs Temp Pulse Resp BP Pulse Ox 97.5 F L 47 L 18 157/87 95 09/25/24 06:46 09/25/24 06:46 09/25/24 06:46 09/25/24 06:46 09/25/24 06:46 General No acute distress alert and oriented x 3 HEENT atraumatic normocephalic eyes PERRLA Cardiovascular regular rate and rhythm Pulmonary nonlabored breathing Abdomen is soft, tender to palpation in the epigastric region, no guarding or rebound tenderness, negative Ortiz sign Results - Labs 09/25/24 06:55 09/25/24 06:55 Abnormal Lab Results - Last 24 Hours (Table) 09/25/24 09/25/24 09/25/24 Range/Units 06:55 06:55 06:55 WBC 15.21 H (4.50-10.00) 10*3/uL Neutrophils # 11.78 H (1.80-7.70) 10*3/uL Eosinophils # 0.62 H (0.04-0.35) 10*3/uL APTT 21.5 L (22.0-30.0) sec Glucose 147 H (74-99) mg/dL Diabetes panel 09/25/24 Range/Units 06:55 Sodium 141 (137-145) mmol/L Potassium 4.5 (3.5-5.1) mmol/L Chloride 107 (98-107) mmol/L Carbon Dioxide 28 (22-30) mmol/L BUN 20 (9-20) mg/dL Creatinine 0.89 (0.66-1.25) mg/dL Glucose 147 H (74-99) mg/dL Calcium 9.5 (8.4-10.2) mg/dL AST 26 (17-59) U/L ALT 24 (4-49) U/L Alkaline Phosphatase 106 (38-126) U/L Total Protein 6.8 (6.3-8.2) g/dL Albumin 4.3 (3.5-5.0) g/dL Calcium panel 09/25/24 Range/Units 06:55 Calcium 9.5 (8.4-10.2) mg/dL Albumin 4.3 (3.5-5.0) g/dL Pituitary panel 09/25/24 Range/Units 06:55 Sodium 141 (137-145) mmol/L Potassium 4.5 (3.5-5.1) mmol/L Chloride 107 (98-107) mmol/L Carbon Dioxide 28 (22-30) mmol/L BUN 20 (9-20) mg/dL Creatinine 0.89 (0.66-1.25) mg/dL Glucose 147 H (74-99) mg/dL Calcium 9.5 (8.4-10.2) mg/dL Adrenal panel 09/25/24 Range/Units 06:55 Sodium 141 (137-145) mmol/L Potassium 4.5 (3.5-5.1) mmol/L Chloride 107 (98-107) mmol/L Carbon Dioxide 28 (22-30) mmol/L BUN 20 (9-20) mg/dL Creatinine 0.89 (0.66-1.25) mg/dL Glucose 147 H (74-99) mg/dL Calcium 9.5 (8.4-10.2) mg/dL Total Bilirubin 1.3 (0.2-1.3) mg/dL AST 26 (17-59) U/L ALT 24 (4-49) U/L Alkaline Phosphatase 106 (38-126) U/L Total Protein 6.8 (6.3-8.2) g/dL Albumin 4.3 (3.5-5.0) g/dL Assessment and Plan Assessment: 79-year-old male with epigastric pain and resolving nausea/vomiting CT abdomen and pelvis reviewed demonstrating a moderate-sized hiatal hernia, distended gallbladder likely from large-volume emesis, diverticulosis and fecalization of small bowel I had an extensive discussion with the patient and stated that a cholecystectomy may not fix his symptoms. I would like to monitor on IV antibiotics along with Protonix. The patient's pain improved we will follow-up outpatient if it does not likely we will do an EGD and cholecystectomy as a last resort. Monitor vitals, labs, abdominal exam Time with Patient: Greater than 30
[2024-09-25] MEDS: metroNIDAZOLE-NS PMX 500 MG in SALINE 1 100ML.BAG IVPB SCH (16:48)
[2024-09-25] MEDS: ATORVASTATIN 40 MG TAB PO SCH (20:28)
[2024-09-25] MEDS: CLOPIDOGREL 75 MG TAB PO SCH (20:28)
[2024-09-25] MEDS: ETODOLAC 200 MG CAPSULE PO SCH (20:29)
[2024-09-25] MEDS: PROPRANOLOL LA 60 MG CAP.SA.24H PO SCH (20:29)
[2024-09-25] MEDS: LOSARTAN 50 MG TAB PO SCH (21:23)
[2024-09-25] MEDS: amLODIPine 5 MG TAB PO SCH (21:23)
[2024-09-26 08:16] LABS: Chol/HDL Ratio 3.34 Ratio; LDL Cholesterol,Calculated 66.6 mg/dL (0.0-131.0); VLDL Calculation 15.38 mg/dL (5.00-40.00)
[2024-09-26] MEDS: PANTOPRAZOLE 40 MG/10 ML VIAL IVP SCH (10:34)
[2024-09-26] MEDS: SODIUM CHLORIDE 0.9% 1,000 ML IV SCH (10:34)
[2024-09-26] MEDS: ASPIRIN 325 MG TAB PO SCH (10:52)
--- NOTE | 2024-09-26 14:16 | NM ---
EXAMINATION TYPE: NM hepatobiliary wo EF DATE OF EXAM: 09/26/2024 COMPARISON: NONE INDICATION: Cholecystitis, right upper quadrant pain TECHNIQUE: After the intravenous administration of 5.05 mCi Tc 99m Mebrofenin hepatobiliary scintigra phy is performed. Images were obtained immediately post injection. FINDINGS: There is prompt uptake and excretion of radiotracer by the liver. Extrahepatic ducts are identified at 12 minutes. Small bowel activity is noted within 16 minutes. Images are continued out to 1 hour. Delayed images at 4 hours were obtained. There is nonvisualizatio n of the gallbladder. IMPRESSION: 1. Nonvisualization of the gallbladder can be compatible with cystic duct obstruction. Clinical clover elation recommended for acute cholecystitis. [facility], , 09/26/2024 2:14 PM
--- NOTE | 2024-09-26 14:30 | P.PN ---
Subjective Progress Note Date: 09/26/24 SURGICAL PROGRESS NOTE CHIEF COMPLAINT: Epigastric pain with nausea and vomiting HISTORY OF PRESENT ILLNESS: Patient complains of right upper quadrant and epigastric pain. He was having dry heaves this morning during the HIDA scan. HIDA scan results are pending. Afebrile. PHYSICAL EXAM: VITAL SIGNS: Reviewed. GENERAL: Well-developed in no acute distress. HEENT: No sclera icterus. Extraocular movements grossly intact. Moist buccal mucosa. Head is atraumatic, normocephalic. ABDOMEN: Soft. Nondistended. Tenderness palpation right upper quadrant epigastric area NEUROLOGIC: Alert and oriented. Cranial nerves II through XII grossly intact. ASSESSMENT: 1. Right upper quadrant epigastric pain with distended gallbladder noted on imaging PLAN: - Follow-up on HIDA scan results - Further recommendations forthcoming per surgeon - Okay to resume clear liquid diet after HIDA scan completed - Last dose of Plavix was 09/25/2024 in the evening. Plavix now placed on hold for possible surgical intervention Physician Molder Apprentice note has been reviewed by physician. Signing provider agrees with the documented findings, assessment, and plan of care. Attestation Patient seen and examined at bedside. Present with chief complaint of epigastric pain with nausea and vomiting. HIDA scan was performed today with concern for possibility of cystic duct obstruction and cholecystitis. Last dose of Plavix was yesterday. Will recommend cardiology evaluation for risk stratification and continue to hold Plavix. We would likely hold Plavix for few days prior to surgical intervention. Jluis Crandall, Objective - Vital Signs Vital signs: Vital Signs Temp 98.4 F 09/26/24 07:00 Pulse 61 09/26/24 07:00 Resp 16 09/26/24 07:00 BP 126/67 09/26/24 07:00 Pulse Ox 96 09/26/24 07:00 FiO2 Intake & Output 09/25/24 09/26/24 09/26/24 18:59 06:59 18:59 Intake Total 118 Balance 118 Weight 90.265 kg Intake: Oral 118 Other: # Voids 1 2 # Bowel Movements 0 - Labs CBC & Chem 7: 09/25/24 06:55 09/25/24 06:55 Labs: Abnormal Lab Results - Last 24 Hours (Table) 09/26/24 Range/Units 02:36 HDL Cholesterol 35.00 L (40.00-60.00) mg/dL
--- NOTE | 2024-09-26 16:46 | CA ---
Transthoracic Echo Report Name: Chicho Napoles Age: 79 Gender: M : 1945 Exam Date: 09/26/2024 14:06 Exam Location: [place] [facility] Ht (in): 72 Wt (lb): 199 Ordering Physician: Judosn Malone Attending/Referring Phys: [id number], Faisal Migratory Farm Hand Yadira iFelds RDCS Procedure CPT: Indications: Chest Pain Cardiac Hx: Technical Quality: Fair Contrast 1: Total Dose (mL): Contrast 2: Total Dose (mL): MEASUREMENTS (Male / Female) Normal Values 2D ECHO LV Diastolic Diameter PLAX 4.5 cm 4.2 - 5.9 / 3.9 - 5.3 cm LV Systolic Diameter PLAX 3.1 cm IVS Diastolic Thickness 0.5 cm 0.6 - 1.0 / 0.6 - 0.9 cm LVPW Diastolic Thickness 0.9 cm 0.6 - 1.0 / 0.6 - 0.9 cm LV Relative Wall Thickness 0.3 LVOT Diameter 2.5 cm LV Diastolic Volume MOD BP 80.8 cm??? 67 - 155 / 56 - 104 cm??? LV Systolic Volume MOD BP 29.0 cm??? 22 - 58 / 19 - 49 cm??? LV Ejection Fraction MOD BP 64.1 % >= 55 % LV Cardiac Index MOD BP 1635.0 cm???/min???m??? LV Diastolic Volume MOD 4C 85.5 cm??? LV Systolic Volume MOD 4C 30.9 cm??? LV Ejection Fraction MOD 4C 63.9 % LV Cardiac Index MOD 4C 1724.7 cm???/min???m??? LV Diastolic Length 4C 8.1 cm LV Systolic Length 4C 6.3 cm LV Diastolic Volume MOD 2C 71.4 cm??? LV Systolic Volume MOD 2C 26.8 cm??? LV Ejection Fraction MOD 2C 62.5 % LV Cardiac Index MOD 2C 1407.7 cm???/min???m??? LV Diastolic Length 2C 7.6 cm LV Systolic Length 2C 6.4 cm LA Volume 60.9 cm??? 18 - 58 / 22 - 52 cm??? LA Volume Index 28.3 cm???/m??? 16 - 28 cm???/m??? DOPPLER AV Peak Velocity 163.3 cm/s AV Peak Gradient 10.7 mmHg AV Mean Velocity 118.3 cm/s AV Mean Gradient 6.2 mmHg AV Velocity Time Integral 33.8 cm LVOT Peak Velocity 114.6 cm/s LVOT Peak Gradient 5.3 mmHg LVOT Velocity Time Integral 22.5 cm LVOT Stroke Volume 108.9 cm??? LVOT Stroke Volume Index 51.2 ml/m??? LVOT Cardiac Index 3436.6 cm???/min???m??? AV Area Cont Eq vti 3.2 cm??? AV Area Cont Eq pk 3.4 cm??? MV Area PHT 4.8 cm??? Mitral E Point Velocity 90.3 cm/s Mitral A Point Velocity 55.5 cm/s Mitral E to A Ratio 1.6 MV Deceleration Time 157.1 ms TR Peak Velocity 293.3 cm/s TR Peak Gradient 34.4 mmHg Right Atrial Pressure 5.0 mmHg Pulmonary Artery Systolic Pressu 39.4 mmHg Right Ventricular Systolic Press 39.4 mmHg PV Peak Velocity 96.1 cm/s PV Peak Gradient 3.7 mmHg FINDINGS Left Ventricle Left ventricular ejection fraction is estimated at 60-65 %. Left ventricular cavity size normal. Left ventricular wall thickness normal. No obvious regional wall motion abnormalities. Right Ventricle Normal right ventricular size and function. Mild pulmonary hypertension. Right Atrium Normal right atrial size. Left Atrium Mildly increased left atrial volume. Mildly increased left atrial area. Mitral Valve Mitral valve thickened. No evidence for mitral valve prolapse. No mitral stenosis. Trace mitral regurgitation. Aortic Valve Trileaflet aortic valve. No aortic stenosis. Mild aortic regurgitation. Tricuspid Valve Structurally normal tricuspid valve. No tricuspid stenosis. Mild tricuspid regurgitation. Pulmonic Valve Structurally normal pulmonic valve. No pulmonic stenosis. Trace pulmonic regurgitation. Pericardium No pericardial effusion. Aorta Normal size aortic root and proximal ascending aorta. CONCLUSIONS LVEF 60 to 65% No obvious regional wall motion abnormality Normal RV size and systolic function. RVSP estimated at 40 mmHg, mild pulmonary hypertension Mild left atrial dilatation Mild aortic regurgitation, mild tricuspid regurgitation Previewed by: Dr Tyler Valentin (Electronically Signed) Final Date: 26 September 2024 16:45
--- NOTE | 2024-09-26 17:45 | P.PN ---
Progress Note - Text Progress Note Date: 09/26/24 Chief Complaint: Chest pain Pleasant 79-year-old patient who follows with Dr. Inna Zaragoza. Chronic medical conditions include COPD, hard of hearing with hearing aid, hypertension, hyperlipidemia, DJD, tinnitus, BPH. Also has CAD with stent placed around 220. 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 Around 3 AM patient woke up with pain what he said was localized chest but actually was more in the upper abdomen just right of the epigastrium. Pretty severe. Patient threw up at least 4 times. Then started having right retching after that. No fever no chills. Pain remains localized. Did break out in a sweat. No dizziness no lightheadedness. Patient baseline is fairly active and last stress test was about 2 years ago. Patient is accompanied by his in the ER. September 26: Patient still having pain on the right side of upper abdomen. HIDA scan done today showed nonvisualization of the gallbladder. Patient being scheduled for cholecystectomy on September 29., Because of Plavix Active Medications Hydrocodone Bitart/Acetaminophen (Hydrocodone/Apap 5-325mg 1 Each Tab) 1 each PO Q6HR PRN PRN Reason: Mild to Moderate Pain (1 - 6) Amlodipine Besylate (Amlodipine 5 Mg Tab) 5 mg PO HS [facility] Last Admin: 09/25/24 21:23 Dose: Not Given Aspirin (Aspirin 325 Mg Tab) 325 mg PO DAILY [facility] Last Admin: 09/26/24 10:52 Dose: Not Given Atorvastatin Calcium (Atorvastatin 40 Mg Tab) 40 mg PO HS [facility] Last Admin: 09/25/24 20:28 Dose: 40 mg Enoxaparin Sodium (Enoxaparin 40 Mg/0.4 Ml Syringe) 40 mg SQ DAILY [facility] Last Admin: 09/26/24 11:19 Dose: 40 mg Etodolac (Etodolac 200 Mg Capsule) 200 mg PO BID [facility] Last Admin: 09/26/24 15:28 Dose: Not Given Ceftriaxone Sodium 1 gm/ (Sodium Chloride) 50 mls @ 100 mls/hr IVPB Q24HR SERA; Protocol Last Admin: 09/26/24 10:33 Dose: 100 mls/hr Metronidazole 500 mg/ IV (Solution) 100 mls @ 100 mls/hr IVPB Q8HR SERA; Protocol Last Admin: 09/26/24 17:24 Dose: 100 mls/hr Sodium Chloride (Saline 0.9%) 1,000 mls @ 50 mls/hr IV .Q20H [facility] Last Admin: 09/26/24 10:34 Dose: 50 mls/hr Losartan Potassium (Losartan 50 Mg Tab) 100 mg PO [facility] Last Admin: 09/25/24 21:23 Dose: Not Given Morphine Sulfate (Morphine Sulfate 4 Mg/Ml Syringe) 4 mg IVP Q4HR PRN PRN Reason: Moderate to Severe Pain (4-10) Nitroglycerin (Nitroglycerin Sl Tabs 0.4 Mg Tab) 0.4 mg SUBLINGUAL Q5M PRN PRN Reason: Chest Pain Ondansetron HCl (Ondansetron 4 Mg/2 Ml Vial) 4 mg IVP Q6HR PRN PRN Reason: Nausea And Vomiting Pantoprazole Sodium (Pantoprazole 40 Mg/10 Ml Vial) 40 mg IVP DAILY [facility] Last Admin: 09/26/24 10:34 Dose: 40 mg Propranolol HCl (Propranolol La 60 Mg Cap.Sa.24h) 60 mg PO [facility] Last Admin: 09/25/24 20:29 Dose: 60 mg Social history: . Stopped smoking in 1989. 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 Alcohol rarely Physical examination: VITAL SIGNS: 98, 65, 16, 137 x 76, 94% room GENERAL: BMI 27, reclining in bed EYES: Pupils equal. Conjunctiva geno l. HEENT: External appearance of nose and ears normal, oral cavity grossly normal. Decreased hearing NECK: JVD not raised; masses not palpable. HEART: First and second heart sounds are normal; no edema. LUNGS: Respiratory rate normal; decreased breath sound. ABDOMEN: Soft, right upper quadrant localized tenderness just lateral to the epigastrium., liver spleen not palpable, no masses palpable. PSYCH: Alert and oriented x3; mood and affect geno l. MUSCULOSKELETAL:No Clubbing/cyanosis;muscles-grossly intact. OA NEUROLOGICAL: Cranial nerves grossly intact; no facial asymmetry, power and sensation grossly intact. LYMPHATICS: No lymph nodes palpable in the axilla and neck INVESTIGATIONS, reviewed in the clinical context: HIDA scan: Nonvisualization of the gallbladder. September 25, 2024: White count 15.2 hemoglobin 14.9 platelets 3 1 left shift sodium 141 potassium 4.5 BUN 20 creatinine 0.89 Troponin I less than 0.012 EKG tracing personally reviewed by me-normal sinus rhythm. Unremarkable Chest x-ray film personally reviewed by me-portable. Poor inspiration film CT chest abdomen: Distended gallbladder with subtle surrounding fat stranding. Small bowel feces sign without evidence of obstruction or dilatation. Sigmoid diverticulosis. Small reactive hernia. Ultrasound gallbladder: Distended gallbladder without wall thickening or gallstones. Common bile duct within normal limits. Right kidney shows cortical thinning without evidence of hydronephrosis. Assessment plan -Acute presentation with sudden onset of pain in the upper epigastrium on the right side. Accompanied by bouts of vomiting. Significant tenderness. Elevated white count. Has a distended gallbladder on the CT scan with pericholecystic fluid. No CBD dilatation no gallstones reported.: Possibly acalculous cholecystitis with acute presentation HIDA scan: Nonvisualization of the gallbladder IV Zosyn. Clear liquid diet. General surgery following. Patient is medically stable to proceed for surgery. Has no active cardiac symptoms. Good exercise tolerance. Low to moderate perioperative cardiovascular risk. - CAD with stent in 2019. 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 Inderal LA. Plavix-held. -Essential hypertension Amlodipine 5 mg nightly. Inderal LA 60 mg nightly. Losartan 100 mg nightly. -Hyperlipidemia Lipitor 40 mg nightly - Primary osteoarthritis multiple joints Hold diclofenac sodium for now. - Hard of hearing, has hearing aids - Full code Patient being scheduled for surgery on . Plavix held Past Medical History Past Medical History: Cancer, COPD, Hearing Disorder / Deafness, Hyperlipidemia, Hypertension, Musculoskeletal Disorder, Prostate Disorder Additional Past Medical History / Comment(s): hx. skin cancer , cleopatra tinnitis, wears cleopatra hearing aides. History of Any Multi-Drug Resistant Organisms: None Reported Past Surgical History: Appendectomy, Heart Catheterization With Stent, Hernia Repair, Joint Replacement, Orthopedic Surgery Additional Past Surgical History / Comment(s): knee surg lft., bilateral shoulder surg., laser surgery and turp for prostate disorder, Left TKA Past Anesthesia/Blood Transfusion Reactions: No Reported Reaction Additional Past Anesthesia/Blood Transfusion Reaction / Comment(s): urine retention Date of Last Stent Placement:: 10/25/19 Past Psychological History: No Psychological Hx Reported Smoking Status: Former smoker Past Alcohol Use History: Rare Additional Past Alcohol Use History / Comment(s): quit 1989 Past Drug Use History: None Reported
[2024-09-27 05:00] LABS: Basophils # (A) 0.05 10*3/uL (0.00-0.10); Basophils % (A) 0.2 %; Eosinophils # (A) 0.12 10*3/uL (0.04-0.35); Eosinophils % (A) 0.5 %; HCT 43.2 % (39.6-50.0); HGB 15.1 g/dL (13.0-17.0); Lymphocytes % (A) 6.9 %; MCH 30.7 pg (27.0-32.0); MCV 87.8 fL (80.0-97.0); Mean Platelet Volume 10.1 fL (9.5-12.2); Monocytes # (A) 1.38 10*3/uL (0.20-1.00); Monocytes % (A) 6.3 %; Neutrophils # (A) 18.53 10*3/uL (1.80-7.70); RBC 4.92 10*6/uL (4.40-5.60); RDW 13.2 % (11.5-14.5); WBC 21.83 10*3/uL (4.50-10.00)
[2024-09-27 05:06] LABS: Platelet Count 156 10*3/uL (140-440)
[2024-09-27] MEDS: HYDROcodone/APAP 5-325MG 1 EACH TAB PO PRN (06:13)
[2024-09-27] MEDS: ASPIRIN 81 MG PO SCH (08:44)
[2024-09-27 11:27] LABS: ALT 23 U/L (10-49); AST 23 U/L (14-35); Albumin 3.7 g/dL (3.8-4.9); Albumin/Globulin Ratio 1.95 Ratio (1.60-3.17); Alkaline Phosphatase 78 U/L (41-126); BUN/Creat Ratio 19.67 Ratio (12.00-20.00); Blood Urea Nitrogen 17.7 mg/dL (9.0-27.0); Calcium 8.4 mg/dL (8.7-10.3); Carbon Dioxide 23.5 mmol/L (21.6-31.8); Chloride 103 mmol/L (96-109); Globulin 1.9 g/dL (1.6-3.3); Glucose 127 mg/dL (70-110); Potassium 3.5 mmol/L (3.5-5.5); Sodium 138 mmol/L (135-145); Total Bilirubin 2.7 mg/dL (0.3-1.2); Total Protein 5.6 g/dL (6.2-8.2)
--- NOTE | 2024-09-27 11:37 | P.CRDCN ---
History of Present Illness History of present illness: HISTORY OF PRESENT ILLNESS: This is a 79-year-old male with a past medical history significant for hypertension, hyperlipidemia, and coronary artery disease with previous stenting. Patient follows with Dr. Garcia. We have been asked to see the patient in consultation for cardiac risk assessment. Patient examined at the bedside. Patient initially presented to the hospital with a chief complaint of chest discomfort. Patient was found to have acute cholecystitis and is scheduled for cholecystectomy on , 09/29/2024. Patient currently denies any chest pain or pressure. He denies shortness of breath. The patient does take Plavix on an outpatient basis secondary to previous stenting. Patient reports he was previously on aspirin and Plavix and was having black stools. He denies having any recent endoscopy. He does report having a relatively recent stress test performed by his primary last inserter which was unremarkable to his knowledge. DIAGNOSTICS: - EKG reveals sinus mechanism with no signs of acute ischemia. - Chest xray findings concerning for large anterior mediastinal mass. - Laboratory data: WBC 21.83. Hemoglobin 15.1. Platelet count 156. Sodium 141. Potassium 4.5. BUN 20. Creatinine 0.89. Troponin negative x 3 - Current home cardiac medications include atorvastatin 40 mg at night, Plavix 75 mg at night, losartan 100 mg at night, propranolol 60 mg at night, and amlodipine 5 mg at night. - Echocardiogram obtained this admission reveals ejection fraction 60 to 65%, trace MR, mild AI, mild TR, mild pulm hypertension - Cardiac catheterization history: Unknown REVIEW OF SYSTEMS: At the time of my exam: CONSTITUTIONAL: Denies fever or chills. HEENT: Denies blurred vision, vision changes, or eye pain. Denies hemoptysis CARDIOVASCULAR: Denies chest pain. Denies orthopnea. Denies PND. Denies palpitations RESPIRATORY: Denies shortness of breath. GASTROINTESTINAL: Denies abdominal pain. Denies nausea or vomiting. HEMATOLOGIC: Denies bleeding disorders. GENITOURINARY: Denies any blood in urine. SKIN: Denies pruitis. Denies rash. PHYSICAL EXAM: VITAL SIGNS: Reviewed. GENERAL: Well-developed in no acute distress. HEENT: Head is normocephalic. Pupils are equal, round. Sclerae anicteric. Mucous membranes of the mouth are moist. Neck supple. No JVD or thyromegaly LUNGS: Respirations even and unlabored. Lungs essentially clear to auscultation bilaterally. HEART: Regular rate and rhythm. S1 and S2 heard. ABDOMEN: Soft. Nondistended. Nontender. EXTREMITIES: Normal range of motion. No clubbing or cyanosis. Peripheral pulses intact. No lower extremity edema NEUROLOGIC: Awake and alert. Oriented x 3. ASSESSMENT: Acute cholecystitis Coronary artery disease with previous stenting History of black stools on dual antiplatelet therapy Hypertension Hyperlipidemia PLAN: 2D echo obtained and reviewed Plavix remains on hold Continue aspirin. Decrease dose to 81 mg daily Patient is scheduled for robotic cholecystectomy with general surgery on , 09/29/2024. Recommend endoscopy to be performed. Discussed with general surgery and will defer decision of endoscopy to general surgery. There are no absolute contraindications for patient to proceed with surgical intervention from a cardiac standpoint Further recommendations pending patient course Nurse practitioner note has been reviewed by physician. Signing provider agrees with the documented findings, assessment, and plan of care documented by CONTENT STRATEGIST as a scribe. Past Medical History Past Medical History: Cancer, COPD, Hearing Disorder / Deafness, Hyperlipidemia, Hypertension, Musculoskeletal Disorder, Prostate Disorder Additional Past Medical History / Comment(s): hx. skin cancer , cleopatra tinnitis, wears cleopatra hearing aides. History of Any Multi-Drug Resistant Organisms: None Reported Past Surgical History: Appendectomy, Heart Catheterization With Stent, Hernia Repair, Joint Replacement, Orthopedic Surgery Additional Past Surgical History / Comment(s): knee surg lft., bilateral shoulder surg., laser surgery and turp for prostate disorder, Left TKA Past Anesthesia/Blood Transfusion Reactions: No Reported Reaction Additional Past Anesthesia/Blood Transfusion Reaction / Comment(s): urine retention Date of Last Stent Placement:: 10/25/19 Past Psychological History: No Psychological Hx Reported Smoking Status: Former smoker Past Alcohol Use History: Rare Additional Past Alcohol Use History / Comment(s): quit 1989 Past Drug Use History: None Reported - Past Family History Mother Family Medical History: Cancer Sister(s) Family Medical History: Cancer Medications and Allergies Home Medications Medication Instructions Recorded Confirmed Type Atorvastatin Calcium 40 mg PO HS 07/08/22 09/25/24 History Losartan Potassium 100 mg PO HS 07/08/22 09/25/24 History amLODIPine [Norvasc] 5 mg PO HS 07/08/22 09/25/24 History Clopidogrel [Plavix] 75 mg PO HS 09/25/24 09/25/24 History Diclofenac Sodium 100 mg PO HS 09/25/24 09/25/24 History Propranolol LA [Inderal LA] 60 mg PO HS 09/25/24 09/25/24 History Allergies Allergy/AdvReac Type Severity Reaction Status Date / Time No Known Allergies Allergy Verified 09/25/24 09:47 Physical Exam Vitals: Vital Signs Temp Pulse Resp BP BP Pulse Ox FiO2 09/27/24 01:14 97.9 F 67 18 125/68 93 L 09/26/24 20:00 65 16 09/26/24 19:13 99.1 F 72 19 156/84 94 L 09/26/24 14:59 98 F 65 16 137/76 94 L 09/26/24 14:18 96 21 Intake and Output 09/26/24 09/27/24 09/27/24 22:59 06:59 14:59 Intake Total 221 Balance 221 Intake: Oral 221 Other: # Voids 1 2 # Bowel Movements 0 Results 09/27/24 04:45 09/27/24 06:37 Lipids 09/26/24 Range/Units 02:36 Triglycerides 76.90 (0.00-149.00) mg/dL Cholesterol 117.00 (0.00-200.00) mg/dL HDL Cholesterol 35.00 L (40.00-60.00) mg/dL Cholesterol/HDL Ratio 3.34 Ratio CBC 09/27/24 Range/Units 04:45 WBC 21.83 H (4.50-10.00) 10*3/uL RBC 4.92 (4.40-5.60) 10*6/uL Hgb 15.1 (13.0-17.0) g/dL Hct 43.2 (39.6-50.0) % Plt Count 156 (140-440) 10*3/uL Current Medications Generic Name Dose Route Start Last Admin Trade Name Freq PRN Reason Stop Dose Admin Hydrocodone Bitart/Acetaminophen 1 each 09/25/24 12:19 09/27/24 06:13 Hydrocodone/Apap 5-325mg 1 Each Tab PO 1 each Q6HR PRN Administration Mild to Moderate Pain (1 - 6) Amlodipine Besylate 5 mg 09/25/24 21:00 09/26/24 20:26 Amlodipine 5 Mg Tab PO 5 mg HS SERA Administration Aspirin 325 mg 09/26/24 09:00 09/26/24 10:52 Aspirin 325 Mg Tab PO Not Given DAILY SERA Atorvastatin Calcium 40 mg 09/25/24 21:00 09/26/24 20:26 Atorvastatin 40 Mg Tab PO 40 mg HS SERA Administration Enoxaparin Sodium 40 mg 09/25/24 11:45 09/26/24 11:19 Enoxaparin 40 Mg/0.4 Ml Syringe SQ 40 mg DAILY SERA Administration Etodolac 200 mg 09/25/24 21:00 09/26/24 20:26 Etodolac 200 Mg Capsule PO 200 mg BID SERA Administration Ceftriaxone Sodium 1 gm/ 50 mls @ 100 mls/hr 09/25/24 12:15 09/26/24 10:33 Sodium Chloride IVPB 100 mls/hr Q24HR SERA Administration Protocol Metronidazole 500 mg/ IV 100 mls @ 100 mls/hr 09/25/24 16:00 09/26/24 22:51 Solution IVPB 100 mls/hr Q8HR SERA Administration Protocol Sodium Chloride 1,000 mls @ 50 mls/hr 09/26/24 10:30 09/27/24 06:14 Saline 0.9% IV 50 mls/hr .Q20H SERA Administration Losartan Potassium 100 mg 09/25/24 21:00 09/26/24 20:26 Losartan 50 Mg Tab PO 100 mg HS SERA Administration Morphine Sulfate 4 mg 09/25/24 12:19 Morphine Sulfate 4 Mg/Ml Syringe IVP Q4HR PRN Moderate to Severe Pain (4-10) Nitroglycerin 0.4 mg 09/25/24 09:45 Nitroglycerin Sl Tabs 0.4 Mg Tab SUBLINGUAL Q5M PRN Chest Pain Ondansetron HCl 4 mg 09/25/24 12:20 Ondansetron 4 Mg/2 Ml Vial IVP Q6HR PRN Nausea And Vomiting Pantoprazole Sodium 40 mg 09/26/24 09:00 09/26/24 10:34 Pantoprazole 40 Mg/10 Ml Vial IVP 40 mg DAILY SERA Administration Propranolol HCl 60 mg 09/25/24 21:00 09/26/24 20:26 Propranolol La 60 Mg Cap.Sa.24h PO 60 mg HS SERA Administration Intake and Output 09/26/24 09/27/24 09/27/24 22:59 06:59 14:59 Intake Total 221 Balance 221 Intake: Oral 221 Other: # Voids 1 2 # Bowel Movements 0 09/27/24 04:45 09/25/24 06:55
--- NOTE | 2024-09-27 15:03 | P.PN ---
Progress Note - Text Progress Note Date: 09/27/24 Chief Complaint: Chest pain Pleasant 79-year-old patient who follows with Dr. Inna Zaragoza. Chronic medical conditions include COPD, hard of hearing with hearing aid, hypertension, hyperlipidemia, DJD, tinnitus, BPH. Also has CAD with stent placed around 220. Patient just changes auto seat cover installer to Dr. Fitzgerald. Around 3 AM patient woke up with pain what he said was localized chest but actually was more in the upper abdomen just right of the epigastrium. Pretty severe. Patient threw up at least 4 times. Then started having right retching after that. No fever no chills. Pain remains localized. Did break out in a sweat. No dizziness no lightheadedness. Patient baseline is fairly active and last stress test was about 2 years ago. Patient is accompanied by his in the ER. September 26: Patient still having pain on the right side of upper abdomen. HIDA scan done today showed nonvisualization of the gallbladder. Patient being scheduled for cholecystectomy on September 29., Because of Plavix September 27: Continues to have abdominal pain. Pending surgery this . Plavix has been held. Remains on IV ceftriaxone. IV fluids. Active Medications Hydrocodone Bitart/Acetaminophen (Hydrocodone/Apap 5-325mg 1 Each Tab) 1 each PO Q6HR PRN PRN Reason: Mild to Moderate Pain (1 - 6) Last Admin: 09/27/24 06:13 Dose: 1 each Amlodipine Besylate (Amlodipine 5 Mg Tab) 5 mg PO HS [facility] Last Admin: 09/26/24 20:26 Dose: 5 mg Aspirin (Aspirin 81 Mg) 81 mg PO DAILY [facility] Last Admin: 09/27/24 08:51 Dose: 81 mg Atorvastatin Calcium (Atorvastatin 40 Mg Tab) 40 mg PO HS [facility] Last Admin: 09/26/24 20:26 Dose: 40 mg Enoxaparin Sodium (Enoxaparin 40 Mg/0.4 Ml Syringe) 40 mg SQ DAILY [facility] Last Admin: 09/27/24 08:44 Dose: 40 mg Etodolac (Etodolac 200 Mg Capsule) 200 mg PO BID [facility] Last Admin: 09/27/24 08:44 Dose: 200 mg Ceftriaxone Sodium 1 gm/ (Sodium Chloride) 50 mls @ 100 mls/hr IVPB Q24HR [facility]; Protocol Last Admin: 09/27/24 08:42 Dose: 100 mls/hr Metronidazole 500 mg/ IV (Solution) 100 mls @ 100 mls/hr IVPB Q8HR [facility]; Protocol Last Admin: 09/27/24 09:45 Dose: 100 mls/hr Sodium Chloride (Saline 0.9%) 1,000 mls @ 50 mls/hr IV .Q20H [facility] Last Admin: 09/27/24 06:14 Dose: 50 mls/hr Losartan Potassium (Losartan 50 Mg Tab) 100 mg PO [facility] Last Admin: 09/26/24 20:26 Dose: 100 mg Morphine Sulfate (Morphine Sulfate 4 Mg/Ml Syringe) 4 mg IVP Q4HR PRN PRN Reason: Moderate to Severe Pain (4-10) Nitroglycerin (Nitroglycerin Sl Tabs 0.4 Mg Tab) 0.4 mg SUBLINGUAL Q5M PRN PRN Reason: Chest Pain Ondansetron HCl (Ondansetron 4 Mg/2 Ml Vial) 4 mg IVP Q6HR PRN PRN Reason: Nausea And Vomiting Pantoprazole Sodium (Pantoprazole 40 Mg/10 Ml Vial) 40 mg IVP DAILY [facility] Last Admin: 09/27/24 08:44 Dose: 40 mg Propranolol HCl (Propranolol La 60 Mg Cap.Sa.24h) 60 mg PO [facility] Last Admin: 09/26/24 20:26 Dose: 60 mg Social history: . Stopped smoking in 1989. 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 Alcohol rarely Physical examination: VITAL SIGNS: 98, 63, 18, 129 x 68, 94% room air GENERAL: BMI 27, reclining in bed EYES: Pupils equal. Conjunctiva geno l. HEENT: External appearance of nose and ears normal, oral cavity grossly normal. Decreased hearing NECK: JVD not raised; masses not palpable. HEART: First and second heart sounds are normal; no edema. LUNGS: Respiratory rate normal; decreased breath sound. ABDOMEN: Soft, right upper quadrant localized tenderness just lateral to the epigastrium., liver spleen not palpable, no masses palpable. PSYCH: Alert and oriented x3; mood and affect geno l. MUSCULOSKELETAL:No Clubbing/cyanosis;muscles-grossly intact. OA INVESTIGATIONS, reviewed in the clinical context: September 27: White count 21.8 hemoglobin 15.1 potassium 3.5 creatinine 0.9 HIDA scan: Nonvisualization of the gallbladder. September 25, 2024: White count 15.2 hemoglobin 14.9 platelets 3 1 left shift sodium 141 potassium 4.5 BUN 20 creatinine 0.89 Troponin I less than 0.012 EKG tracing personally reviewed by me-normal sinus rhythm. Unremarkable Chest x-ray film personally reviewed by me-portable. Poor inspiration film CT chest abdomen: Distended gallbladder with subtle surrounding fat stranding. Small bowel feces sign without evidence of obstruction or dilatation. Sigmoid diverticulosis. Small reactive hernia. Ultrasound gallbladder: Distended gallbladder without wall thickening or gallstones. Common bile duct within normal limits. Right kidney shows cortical thinning without evidence of hydronephrosis. Assessment plan -Acute presentation with sudden onset of pain in the upper epigastrium on the right side. Accompanied by bouts of vomiting. Significant tenderness. Elevated white count. Has a distended gallbladder on the CT scan with pericholecystic fluid. No CBD dilatation no gallstones reported.: Possibly acalculous cholecystitis with acute presentation: Not improving HIDA scan: Nonvisualization of the gallbladder IV Zosyn. Clear liquid diet. General surgery following. Patient is medically stable to proceed for surgery. Has no active cardiac symptoms. Good exercise tolerance. Low to moderate perioperative cardiovascular risk. - CAD with stent in 2019. Patient just switched over his auto seat cover installer Amlodipine. Inderal LA. Plavix-held. -Essential hypertension Amlodipine 5 mg nightly. Inderal LA 60 mg nightly. Losartan 100 mg nightly. -Hyperlipidemia Lipitor 40 mg nightly - Primary osteoarthritis multiple joints Hold diclofenac sodium for now. - Hard of hearing, has hearing aids - Full code Pending surgery. Discussed with patient. Past Medical History Past Medical History: Cancer, COPD, Hearing Disorder / Deafness, Hyperlipidemia, Hypertension, Musculoskeletal Disorder, Prostate Disorder Additional Past Medical History / Comment(s): hx. skin cancer , cleopatra tinnitis, wears cleopatra hearing aides. History of Any Multi-Drug Resistant Organisms: None Reported Past Surgical History: Appendectomy, Heart Catheterization With Stent, Hernia Repair, Joint Replacement, Orthopedic Surgery Additional Past Surgical History / Comment(s): knee surg lft., bilateral shoulder surg., laser surgery and turp for prostate disorder, Left TKA Past Anesthesia/Blood Transfusion Reactions: No Reported Reaction Additional Past Anesthesia/Blood Transfusion Reaction / Comment(s): urine retention Date of Last Stent Placement:: 10/25/19 Past Psychological History: No Psychological Hx Reported Smoking Status: Former smoker Past Alcohol Use History: Rare Additional Past Alcohol Use History / Comment(s): 1989 Past Drug Use History: None Reported
--- NOTE | 2024-09-27 15:21 | P.PN ---
Subjective Progress Note Date: 09/27/24 SURGICAL PROGRESS NOTE CHIEF COMPLAINT: Epigastric pain with nausea and vomiting HISTORY OF PRESENT ILLNESS: Patient reports having abdominal pain last night in which she had taken [place] that did relieve the pain. The dry heaves are slightly better. He is tolerating the clear liquids. Patient seen by cardiology service they are requesting an EGD be completed due to melanotic stools. Patient reports having black stools with abdominal pain probably about a year ago while he had been taking both Plavix and aspirin. When he stopped those medications on his own the stools returned to brown. Patient reports being recently restarted on Plavix over a week ago. Patient is HIDA scan is positive. Results reported nonvisualization of the gallbladder can be compatible with cystic duct obstruction. Correlate for acute cholecystitis. Afebrile. WBC is up from 15-21 total bilirubin is up from 1.3-2.7 LFTs are normal PHYSICAL EXAM: VITAL SIGNS: Reviewed. GENERAL: Well-developed in no acute distress. HEENT: No sclera icterus. Extraocular movements grossly intact. Moist buccal mucosa. Head is atraumatic, normocephalic. ABDOMEN: Soft. Nondistended. Tenderness palpation epigastric area NEUROLOGIC: Alert and oriented. Cranial nerves II through XII grossly intact. ASSESSMENT: 1. Acute cholecystitis. Epigastric pain with distended gallbladder noted on imaging and positive HIDA scan 2. History of melanotic stools while on Plavix PLAN: -Patient scheduled for Robotic cholecystectomy and EGD on , 09/29/[address] Moyer -Continue to hold Plavix -Continue clear liquid diet. Okay for coffee -Continue antibiotics -Discontinue etodolac due to increased bleeding risk with this medication Physician Machine Cleaner note has been reviewed by physician. Signing provider agrees with the documented findings, assessment, and plan of care. Objective - Vital Signs Vital signs: Vital Signs Temp 98.0 F 09/27/24 07:00 Pulse 63 09/27/24 07:00 Resp 18 09/27/24 07:00 BP 129/68 09/27/24 07:00 Pulse Ox 94 L 09/27/24 07:00 FiO2 21 09/26/24 14:18 Intake & Output 09/26/24 09/27/24 09/27/24 18:59 06:59 18:59 Intake Total 221 100 Balance 221 100 Intake: Oral 221 100 Other: # Voids 2 2 # Bowel Movements 0 - Labs CBC & Chem 7: 09/27/24 04:45 09/27/24 06:37 Labs: Abnormal Lab Results - Last 24 Hours (Table) 09/27/24 09/27/24 Range/Units 04:45 06:37 WBC 21.83 H (4.50-10.00) 10*3/uL Immature Gran # 0.25 H (0.00-0.04) 10*3/uL Neutrophils # 18.53 H (1.80-7.70) 10*3/uL Monocytes # 1.38 H (0.20-1.00) 10*3/uL Glucose 127 H (70-110) mg/dL Calcium 8.4 L (8.7-10.3) mg/dL Total Bilirubin 2.7 H (0.3-1.2) mg/dL Total Protein 5.6 L (6.2-8.2) g/dL Albumin 3.7 L (3.8-4.9) g/dL
[2024-09-28 05:29] LABS: Basophils # (A) 0.03 10*3/uL (0.00-0.10); Basophils % (A) 0.1 %; Eosinophils # (A) 0.12 10*3/uL (0.04-0.35); Eosinophils % (A) 0.6 %; HCT 36.2 % (39.6-50.0); HGB 13.2 g/dL (13.0-17.0); Lymphocytes # (A) 1.23 10*3/uL (0.90-5.00); Lymphocytes % (A) 5.9 %; MCH 31.4 pg (27.0-32.0); MCHC 36.5 g/dL (32.0-37.0); Mean Platelet Volume 10.4 fL (9.5-12.2); Monocytes # (A) 1.44 10*3/uL (0.20-1.00); Monocytes % (A) 6.9 %; Neutrophils # (A) 17.76 10*3/uL (1.80-7.70); Neutrophils % (A) 85.2 %; Platelet Count 242 10*3/uL (140-440); RBC 4.21 10*6/uL (4.40-5.60); WBC 20.85 10*3/uL (4.50-10.00)
[2024-09-28 05:32] LABS: ALT 20 U/L (4-49); AST 25 U/L (17-59); African American GFR (CKD) >90 (>60 ml/min/1.73 sqM); Albumin/Globulin Ratio 1.3; Alkaline Phosphatase 94 U/L (38-126); Anion Gap 10 mmol/L; Blood Urea Nitrogen 19 mg/dL (9-20); Calcium 8.4 mg/dL (8.4-10.2); Carbon Dioxide 24 mmol/L (22-30); Chloride 101 mmol/L (98-107); Globulin 2.3 g/dL; Glucose 99 mg/dL (74-99); Non-African American GFR(CKD) 90 (>60 ml/min/1.73 sqM); Potassium 3.1 mmol/L (3.5-5.1); Sodium 135 mmol/L (137-145); Total Bilirubin 2.2 mg/dL (0.2-1.3); Total Protein 5.3 g/dL (6.3-8.2)
[2024-09-28] MEDS: POTASSIUM CHLORIDE ER 20 MEQ TAB.ER PO STA (08:38)
--- NOTE | 2024-09-28 12:26 | P.PN ---
Subjective HISTORY OF PRESENT ILLNESS: This is a 79-year-old male with a past medical history significant for hypertension, hyperlipidemia, and coronary artery disease with previous stenting. Patient follows with Dr. Garcia. We have been asked to see the patient in consultation for cardiac risk assessment. Patient examined at the bedside. Patient initially presented to the hospital with a chief complaint of chest discomfort. Patient was found to have acute cholecystitis and is scheduled for cholecystectomy on , 09/29/2024. Patient currently denies any chest pain or pressure. He denies shortness of breath. The patient does take Plavix on an outpatient basis secondary to previous stenting. Patient reports he was previously on aspirin and Plavix and was having black stools. He denies having any recent endoscopy. He does report having a relatively recent stress test performed by his primary machining manager which was unremarkable to his knowledge. DIAGNOSTICS: - EKG reveals sinus mechanism with no signs of acute ischemia. - Chest xray findings concerning for large anterior mediastinal mass. - Laboratory data: WBC 21.83. Hemoglobin 15.1. Platelet count 156. Sodium 141. Potassium 4.5. BUN 20. Creatinine 0.89. Troponin negative x 3 - Current home cardiac medications include atorvastatin 40 mg at night, Plavix 75 mg at night, losartan 100 mg at night, propranolol 60 mg at night, and amlodipine 5 mg at night. - Echocardiogram obtained this admission reveals ejection fraction 60 to 65%, trace MR, mild AI, mild TR, mild pulm hypertension - Cardiac catheterization history: Unknown 09/28/2024 Patient examined this morning at the bedside. Patient currently denies chest pain or pressure. Denies shortness of breath. Plavix remains on hold. He is scheduled for surgery tomorrow. PHYSICAL EXAM: VITAL SIGNS: Reviewed. GENERAL: Well-developed in no acute distress. HEENT: Head is normocephalic. Pupils are equal, round. Sclerae anicteric. Mucous membranes of the mouth are moist. Neck supple. No JVD or thyromegaly LUNGS: Respirations even and unlabored. Lungs essentially clear to auscultation bilaterally. HEART: Regular rate and rhythm. S1 and S2 heard. ABDOMEN: Soft. Nondistended. Nontender. EXTREMITIES: Normal range of motion. No clubbing or cyanosis. Peripheral pulses intact. No lower extremity edema NEUROLOGIC: Awake and alert. Oriented x 3. ASSESSMENT: Acute cholecystitis Coronary artery disease with previous stenting History of black stools on dual antiplatelet therapy Hypertension Hyperlipidemia PLAN: Plavix remains on hold Continue aspirin 81 mg daily Patient is scheduled for robotic cholecystectomy and EGD with general surgery on , 09/29/2024 There are no absolute contraindications for patient to proceed with surgical intervention from a cardiac standpoint Further recommendations pending patient course Nurse practitioner note has been reviewed by physician. Signing provider agrees with the documented findings, assessment, and plan of care documented by PATROL COMMANDER as a scribe. Objective - Vital Signs Vital signs: Vital Signs Temp 97.7 F 09/28/24 07:00 Pulse 63 09/28/24 07:00 Resp 18 09/28/24 08:02 BP 115/66 09/28/24 07:00 Pulse Ox 93 L 09/28/24 07:00 FiO2 21 09/26/24 14:18 Intake & Output 09/27/24 09/28/24 09/28/24 18:59 06:59 18:59 Intake Total 321 Balance 321 Intake: Oral 321 Other: # Voids 1 2 # Bowel Movements 0 - Labs CBC & Chem 7: 09/28/24 04:48 09/28/24 04:48 Labs: Abnormal Lab Results - Last 24 Hours (Table) 09/28/24 09/28/24 Range/Units 04:48 04:48 WBC 20.85 H (4.50-10.00) 10*3/uL RBC 4.21 L (4.40-5.60) 10*6/uL Hct 36.2 L (39.6-50.0) % Immature Gran # 0.27 H (0.00-0.04) 10*3/uL Neutrophils # 17.76 H (1.80-7.70) 10*3/uL Monocytes # 1.44 H (0.20-1.00) 10*3/uL Sodium 135 L (137-145) mmol/L Potassium 3.1 L (3.5-5.1) mmol/L Total Bilirubin 2.2 H (0.2-1.3) mg/dL Total Protein 5.3 L (6.3-8.2) g/dL Albumin 3.0 L (3.5-5.0) g/dL
--- NOTE | 2024-09-28 14:06 | P.PN ---
Subjective Progress Note Date: 09/28/24 SURGICAL PROGRESS NOTE CHIEF COMPLAINT: Epigastric pain with nausea and vomiting HISTORY OF PRESENT ILLNESS: Patient sitting at bedside chair. He did require [place] last night for pain. He reports improvement in his nausea. Occasional dry heaves. Afebrile. WBC is 20.85 Hgb 13.2 potassium 3.1 total bili 2.2 LFTs normal PHYSICAL EXAM: VITAL SIGNS: Reviewed. GENERAL: Well-developed in no acute distress. HEENT: No sclera icterus. Extraocular movements grossly intact. Moist buccal mucosa. Head is atraumatic, normocephalic. ABDOMEN: Soft. Nondistended. Tenderness palpation epigastric area NEUROLOGIC: Alert and oriented. Cranial nerves II through XII grossly intact. ASSESSMENT: 1. Acute cholecystitis. Epigastric pain with distended gallbladder noted on imaging and positive HIDA scan 2. History of melanotic stools while on Plavix PLAN: -Patient scheduled for Robotic cholecystectomy and EGD tomorrow, 09/29/[address] Moyer -N.p.o. after midnight -Continue to hold Plavix Physician Sql Tech note has been reviewed by physician. Signing provider agrees with the documented findings, assessment, and plan of care. Attestation Patient seen and examined at bedside. In good spirits. Continues to have epigastric pain. Plan for cholecystectomy and EGD tomorrow. Patient has been off of Plavix. Continue IV antibiotics. Jluis Crandall DO Objective - Vital Signs Vital signs: Vital Signs Temp 97.7 F 09/28/24 07:00 Pulse 63 09/28/24 07:00 Resp 16 09/28/24 07:00 BP 115/66 09/28/24 07:00 Pulse Ox 93 L 09/28/24 07:00 FiO2 21 09/26/24 14:18 Intake & Output 09/27/24 09/28/24 09/28/24 18:59 06:59 18:59 Intake Total 321 Balance 321 Intake: Oral 321 Other: # Voids 1 2 # Bowel Movements 0 - Labs CBC & Chem 7: 09/28/24 04:48 09/28/24 04:48 Labs: Abnormal Lab Results - Last 24 Hours (Table) 09/28/24 09/28/24 Range/Units 04:48 04:48 WBC 20.85 H (4.50-10.00) 10*3/uL RBC 4.21 L (4.40-5.60) 10*6/uL Hct 36.2 L (39.6-50.0) % Immature Gran # 0.27 H (0.00-0.04) 10*3/uL Neutrophils # 17.76 H (1.80-7.70) 10*3/uL Monocytes # 1.44 H (0.20-1.00) 10*3/uL Sodium 135 L (137-145) mmol/L Potassium 3.1 L (3.5-5.1) mmol/L Total Bilirubin 2.2 H (0.2-1.3) mg/dL Total Protein 5.3 L (6.3-8.2) g/dL Albumin 3.0 L (3.5-5.0) g/dL
--- NOTE | 2024-09-28 18:21 | P.PN ---
Progress Note - Text Progress Note Date: 09/28/24 Pleasant 79-year-old patient who follows with Dr. Inna Zaragoza. Chronic medical conditions include COPD, hard of hearing with hearing aid, hypertension, hyperlipidemia, DJD, tinnitus, BPH. Also has CAD with stent placed around 220. 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 Around 3 AM patient woke up with pain what he said was localized chest but actually was more in the upper abdomen just right of the epigastrium. Pretty severe. Patient threw up at least 4 times. Then started having right retching after that. No fever no chills. Pain remains localized. Did break out in a sweat. No dizziness no lightheadedness. Patient baseline is fairly active and last stress test was about 2 years ago. Patient is accompanied by his in the ER. September 26: Patient still having pain on the right side of upper abdomen. HIDA scan done today showed nonvisualization of the gallbladder. Patient being scheduled for cholecystectomy on , September 29., Because of Plavix September 27: Continues to have abdominal pain. Pending surgery this . Plavix has been held. Remains on IV ceftriaxone. IV fluids. September 28: Abdominal pain present. Scheduled for surgery tomorrow. Clear liquids. N.p.o. after midnight. Active Medications Hydrocodone Bitart/Acetaminophen (Hydrocodone/Apap 5-325mg 1 Each Tab) 1 each PO Q6HR PRN PRN Reason: Mild to Moderate Pain (1 - 6) Last Admin: 09/28/24 14:26 Dose: 1 each Amlodipine Besylate (Amlodipine 5 Mg Tab) 5 mg PO HS [facility] Last Admin: 09/27/24 20:14 Dose: 5 mg Aspirin (Aspirin 81 Mg) 81 mg PO DAILY [facility] Last Admin: 09/28/24 08:09 Dose: 81 mg Atorvastatin Calcium (Atorvastatin 40 Mg Tab) 40 mg PO HS [facility] Last Admin: 09/27/24 20:14 Dose: 40 mg Enoxaparin Sodium (Enoxaparin 40 Mg/0.4 Ml Syringe) 40 mg SQ DAILY [facility] Last Admin: 09/28/24 08:09 Dose: 40 mg Ceftriaxone Sodium 1 gm/ (Sodium Chloride) 50 mls @ 100 mls/hr IVPB Q24HR [facility]; Protocol Last Admin: 09/28/24 09:50 Dose: 100 mls/hr Metronidazole 500 mg/ IV (Solution) 100 mls @ 100 mls/hr IVPB Q8HR [facility]; Protocol Last Admin: 09/28/24 15:40 Dose: 100 mls/hr Sodium Chloride (Saline 0.9%) 1,000 mls @ 50 mls/hr IV .Q20H [facility] Last Admin: 09/28/24 00:15 Dose: 50 mls/hr Losartan Potassium (Losartan 50 Mg Tab) 100 mg PO [facility] Last Admin: 09/27/24 20:14 Dose: 100 mg Morphine Sulfate (Morphine Sulfate 4 Mg/Ml Syringe) 4 mg IVP Q4HR PRN PRN Reason: Moderate to Severe Pain (4-10) Nitroglycerin (Nitroglycerin Sl Tabs 0.4 Mg Tab) 0.4 mg SUBLINGUAL Q5M PRN PRN Reason: Chest Pain Ondansetron HCl (Ondansetron 4 Mg/2 Ml Vial) 4 mg IVP Q6HR PRN PRN Reason: Nausea And Vomiting Pantoprazole Sodium (Pantoprazole 40 Mg/10 Ml Vial) 40 mg IVP DAILY [facility] Last Admin: 09/28/24 08:09 Dose: 40 mg Propranolol HCl (Propranolol La 60 Mg Cap.Sa.24h) 60 mg PO [facility] Last Admin: 09/27/24 20:14 Dose: 60 mg Social history: . Stopped smoking in 1989. 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 Alcohol rarely Physical examination: VITAL SIGNS: 98.8, 67, 16, 138 x 87, 94% room air GENERAL: BMI 27, reclining in bed EYES: Pupils equal. Conjunctiva geno l. HEENT: External appearance of nose and ears normal, oral cavity grossly normal. Decreased hearing NECK: JVD not raised; masses not palpable. HEART: First and second heart sounds are normal; no edema. LUNGS: Respiratory rate normal; decreased breath sound. ABDOMEN: Soft, right upper quadrant localized tenderness just lateral to the epigastrium., liver spleen not palpable, no masses palpable. PSYCH: Alert and oriented x3; mood and affect geno l. MUSCULOSKELETAL:No Clubbing/cyanosis;muscles-grossly intact. OA INVESTIGATIONS, reviewed in the clinical context: September 28: White count 20.8 September 27: White count 21.8 hemoglobin 15.1 potassium 3.5 creatinine 0.9 HIDA scan: Nonvisualization of the gallbladder. September 25, 2024: White count 15.2 hemoglobin 14.9 platelets 3 1 left shift sodium 141 potassium 4.5 BUN 20 creatinine 0.89 Troponin I less than 0.012 EKG tracing personally reviewed by me-normal sinus rhythm. Unremarkable Chest x-ray film personally reviewed by me-portable. Poor inspiration film CT chest abdomen: Distended gallbladder with subtle surrounding fat stranding. Small bowel feces sign without evidence of obstruction or dilatation. Sigmoid diverticulosis. Small reactive hernia. Ultrasound gallbladder: Distended gallbladder without wall thickening or gallstones. Common bile duct within normal limits. Right kidney shows cortical thinning without evidence of hydronephrosis. Assessment plan -Acute presentation with sudden onset of pain in the upper epigastrium on the right side. Accompanied by bouts of vomiting. Significant tenderness. Elevated white count. Has a distended gallbladder on the CT scan with pericholecystic fluid. No CBD dilatation no gallstones reported.: Possibly acalculous cholecystitis with acute presentation: Not improving HIDA scan: Nonvisualization of the gallbladder IV Zosyn. Clear liquid diet. General surgery following. Patient is medically stable to proceed for surgery. Has no active cardiac symptoms. Good exercise tolerance. Low to moderate perioperative cardiovascular risk. - CAD with stent in 2019. 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 Inderal LA. Plavix-held. -Essential hypertension Amlodipine 5 mg nightly. Inderal LA 60 mg nightly. Losartan 100 mg nightly. -Hyperlipidemia Lipitor 40 mg nightly - Primary osteoarthritis multiple joints Hold diclofenac sodium for now. - Hard of hearing, has hearing aids - Full code Clear liquids. Scheduled for surgery tomorrow. Past Medical History Past Medical History: Cancer, COPD, Hearing Disorder / Deafness, Hyperlipidemia, Hypertension, Musculoskeletal Disorder, Prostate Disorder Additional Past Medical History / Comment(s): hx. skin cancer , cleopatra tinnitis, wears cleopatra hearing aides. History of Any Multi-Drug Resistant Organisms: None Reported Past Surgical History: Appendectomy, Heart Catheterization With Stent, Hernia Repair, Joint Replacement, Orthopedic Surgery Additional Past Surgical History / Comment(s): knee surg lft., bilateral shoulder surg., laser surgery and turp for prostate disorder, Left TKA Past Anesthesia/Blood Transfusion Reactions: No Reported Reaction Additional Past Anesthesia/Blood Transfusion Reaction / Comment(s): urine retention Date of Last Stent Placement:: 10/25/19 Past Psychological History: No Psychological Hx Reported Smoking Status: Former smoker Past Alcohol Use History: Rare Additional Past Alcohol Use History / Comment(s): 1989 Past Drug Use History: None Reported
[2024-09-29 05:25] LABS: Basophils # (A) 0.05 10*3/uL (0.00-0.10); Basophils % (A) 0.3 %; Eosinophils % (A) 2.7 %; HCT 36.3 % (39.6-50.0); HGB 12.8 g/dL (13.0-17.0); Lymphocytes # (A) 1.67 10*3/uL (0.90-5.00); Lymphocytes % (A) 11.2 %; MCH 30.5 pg (27.0-32.0); MCHC 35.3 g/dL (32.0-37.0); MCV 86.6 fL (80.0-97.0); Mean Platelet Volume 9.9 fL (9.5-12.2); Monocytes % (A) 8.7 %; Neutrophils # (A) 11.38 10*3/uL (1.80-7.70); Neutrophils % (A) 76.5 %; Platelet Count 270 10*3/uL (140-440); RBC 4.19 10*6/uL (4.40-5.60); RDW 13.1 % (11.5-14.5); WBC 14.89 10*3/uL (4.50-10.00)
[2024-09-29 05:57] LABS: ALT 19 U/L (4-49); AST 27 U/L (17-59); African American GFR (CKD) >90 (>60 ml/min/1.73 sqM); Albumin 2.9 g/dL (3.5-5.0); Albumin/Globulin Ratio 1.3; Alkaline Phosphatase 88 U/L (38-126); Anion Gap 9 mmol/L; Blood Urea Nitrogen 16 mg/dL (9-20); Calcium 8.2 mg/dL (8.4-10.2); Carbon Dioxide 24 mmol/L (22-30); Chloride 101 mmol/L (98-107); Globulin 2.2 g/dL; Glucose 89 mg/dL (74-99); Non-African American GFR(CKD) >90 (>60 ml/min/1.73 sqM); Potassium 3.2 mmol/L (3.5-5.1); Sodium 134 mmol/L (137-145); Total Bilirubin 1.4 mg/dL (0.2-1.3); Total Protein 5.1 g/dL (6.3-8.2)
[2024-09-29] MEDS: POTASSIUM CHLORIDE ER 20 MEQ TAB.ER PO STA (08:19)
[2024-09-29] MEDS: IV FLUID CONTINUATION 1,000 ML IV ONE (13:54)
[2024-09-29] MEDS: ONDANSETRON 4 MG/2 ML VIAL IVP PRN (14:07)
[2024-09-29] MEDS: DEXAMETHASONE SOD PHOSPHATE 4 MG/ML 1 ML VIAL IVP STA (14:07)
[2024-09-29] MEDS ORDERED: GLYCOPYRROLATE 0.2 MG/ML 2 ML VIAL ONE (14:18)
[2024-09-29] MEDS ORDERED: ROCURONIUM 10 MG/ML (5 ML VIAL) IV ONE (14:18)
[2024-09-29] MEDS ORDERED: NEOSTIGMINE 1 MG/ML 10 ML VIAL ONE (14:18)
[2024-09-29] MEDS ORDERED: LIDOCAINE 1% INJ 10MG/ML (20 ML MDV) ONE (14:18)
[2024-09-29] MEDS ORDERED: PROPOFOL 10 MG/ML 20 ML VIAL IV ONE (14:18)
[2024-09-29] MEDS ORDERED: fentaNYL (PF) 50 MCG/ML 2 ML AMP ONE (14:18)
[2024-09-29] MEDS ORDERED: HYDROmorphone (PF) 1 MG/ML ONE (14:18)
[2024-09-29] MEDS ORDERED: SUCCINYLCHOLINE CHLORIDE 200 MG/10 ML VIAL IV ONE (14:18)
[2024-09-29] MEDS ORDERED: MIDAZOLAM 2 MG/2 ML VIAL ONE (14:18)
[2024-09-29] MEDS: BUPIVACAINE (PF) 0.25% 30 ML VIAL SQ ONE (14:38)
[2024-09-29] MEDS: LACTATED RINGERS 1,000 ML IV ONE (15:24)
[2024-09-29] MEDS: HYDROcodone/APAP 10-325MG 1 EACH TAB PO PRN (18:00)
--- NOTE | 2024-09-29 18:51 | P.PN ---
Progress Note - Text Progress Note Date: 09/29/24 Pleasant 79-year-old patient who follows with Dr. Inna Zaragoza. Chronic medical conditions include COPD, hard of hearing with hearing aid, hypertension, hyperlipidemia, DJD, tinnitus, BPH. Also has CAD with stent placed around 220. 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 Around 3 AM patient woke up with pain what he said was localized chest but actually was more in the upper abdomen just right of the epigastrium. Pretty severe. Patient threw up at least 4 times. Then started having right retching after that. No fever no chills. Pain remains localized. Did break out in a sweat. No dizziness no lightheadedness. Patient baseline is fairly active and last stress test was about 2 years ago. Patient is accompanied by his in the ER. September 26: Patient still having pain on the right side of upper abdomen. HIDA scan done today showed nonvisualization of the gallbladder. Patient being scheduled for cholecystectomy on , September 29., Because of Plavix September 27: Continues to have abdominal pain. Pending surgery this . Plavix has been held. Remains on IV ceftriaxone. IV fluids. September 28: Abdominal pain present. Scheduled for surgery tomorrow. Clear liquids. N.p.o. after midnight. September 29: Patient seen this morning. Pending surgery. Family at the bedside. NPO. Antibiotics in place Active Medications Hydrocodone Bitart/Acetaminophen (Hydrocodone/Apap 5-325mg 1 Each Tab) 1 each PO Q6HR PRN PRN Reason: Mild to Moderate Pain (1 - 6) Last Admin: 09/28/24 21:19 Dose: 1 each Hydrocodone Bitart/Acetaminophen (Hydrocodone/Apap 10-325mg 1 Each Tab) 1 each PO Q6HR PRN PRN Reason: Pain 7-10 Last Admin: 09/29/24 18:00 Dose: 1 each Amlodipine Besylate (Amlodipine 5 Mg Tab) 5 mg PO HS [facility] Last Admin: 09/28/24 21:11 Dose: 5 mg Aspirin (Aspirin 81 Mg) 81 mg PO DAILY [facility] Last Admin: 09/29/24 08:20 Dose: 81 mg Atorvastatin Calcium (Atorvastatin 40 Mg Tab) 40 mg PO HS [facility] Last Admin: 09/28/24 21:11 Dose: 40 mg Enoxaparin Sodium (Enoxaparin 40 Mg/0.4 Ml Syringe) 40 mg SQ DAILY [facility] Last Admin: 09/29/24 08:19 Dose: 40 mg Ceftriaxone Sodium 1 gm/ (Sodium Chloride) 50 mls @ 100 mls/hr IVPB Q24HR [facility]; Protocol Last Admin: 09/29/24 09:47 Dose: 100 mls/hr Metronidazole 500 mg/ IV (Solution) 100 mls @ 100 mls/hr IVPB Q8HR [facility]; Protocol Last Admin: 09/29/24 18:01 Dose: 100 mls/hr Sodium Chloride (Saline 0.9%) 1,000 mls @ 50 mls/hr IV .Q20H [facility] Last Admin: 09/29/24 18:35 Dose: Not Given Losartan Potassium (Losartan 50 Mg Tab) 100 mg PO [facility] Last Admin: 09/28/24 21:11 Dose: 100 mg Morphine Sulfate (Morphine Sulfate 4 Mg/Ml Syringe) 4 mg IVP Q4HR PRN PRN Reason: Moderate to Severe Pain (4-10) Nitroglycerin (Nitroglycerin Sl Tabs 0.4 Mg Tab) 0.4 mg SUBLINGUAL Q5M PRN PRN Reason: Chest Pain Ondansetron HCl (Ondansetron 4 Mg/2 Ml Vial) 4 mg IVP Q6HR PRN PRN Reason: Nausea And Vomiting Last Admin: 09/29/24 14:07 Dose: 4 mg Pantoprazole Sodium (Pantoprazole 40 Mg/10 Ml Vial) 40 mg IVP DAILY [facility] Last Admin: 09/29/24 08:20 Dose: 40 mg Propranolol HCl (Propranolol La 60 Mg Cap.Sa.24h) 60 mg PO [facility] Last Admin: 09/28/24 21:11 Dose: 60 mg Social history: . Stopped smoking in 1989. 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 Alcohol rarely Physical examination: VITAL SIGNS: 97.7, 58, 16, 156 x 69, 99% 2 L GENERAL: BMI 27, up in a chair EYES: Pupils equal. Conjunctiva geno l. HEENT: External appearance of nose and ears normal, oral cavity grossly normal. Decreased hearing NECK: JVD not raised; masses not palpable. HEART: First and second heart sounds are normal; no edema. LUNGS: Respiratory rate normal; decreased breath sound. ABDOMEN: Soft, right upper quadrant localized tenderness just lateral to the epigastrium., liver spleen not palpable, no masses palpable. PSYCH: Alert and oriented x3; mood and affect geno l. MUSCULOSKELETAL:No Clubbing/cyanosis;muscles-grossly intact. OA INVESTIGATIONS, reviewed in the clinical context: September 29: White count 14.8 hemoglobin 12.8 potassium 3.2 replete 3.6 creatinine 0.69 September 28: White count 20.8 September 27: White count 21.8 hemoglobin 15.1 potassium 3.5 creatinine 0.9 HIDA scan: Nonvisualization of the gallbladder. September 25, 2024: White count 15.2 hemoglobin 14.9 platelets 3 1 left shift sodium 141 potassium 4.5 BUN 20 creatinine 0.89 Troponin I less than 0.012 EKG tracing personally reviewed by me-normal sinus rhythm. Unremarkable Chest x-ray film personally reviewed by me-portable. Poor inspiration film CT chest abdomen: Distended gallbladder with subtle surrounding fat stranding. Small bowel feces sign without evidence of obstruction or dilatation. Sigmoid diverticulosis. Small reactive hernia. Ultrasound gallbladder: Distended gallbladder without wall thickening or gallstones. Common bile duct within normal limits. Right kidney shows cortical thinning without evidence of hydronephrosis. Assessment plan -Acute presentation with sudden onset of pain in the upper epigastrium on the right side. Accompanied by bouts of vomiting. Significant tenderness. Elevated white count. Has a distended gallbladder on the CT scan with pericholecystic fluid. No CBD dilatation no gallstones reported.: Possibly acalculous cholecystitis with acute presentation: Not improving HIDA scan: Nonvisualization of the gallbladder IV Zosyn. NPO for surgery this afternoon Patient is medically stable to proceed for surgery. Has no active cardiac symptoms. Good exercise tolerance. Low to moderate perioperative cardiovascular risk. - CAD with stent in 2019. 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 Inderal LA. Plavix-held. -Essential hypertension Amlodipine 5 mg nightly. Inderal LA 60 mg nightly. Losartan 100 mg nightly. -Hyperlipidemia Lipitor 40 mg nightly - Primary osteoarthritis multiple joints Hold diclofenac sodium for now. - Hard of hearing, has hearing aids - Full code N.p.o. today. Pending surgery this afternoon. Discussed with the patient and family Past Medical History Past Medical History: Cancer, COPD, Hearing Disorder / Deafness, Hyperlipidemia, Hypertension, Musculoskeletal Disorder, Prostate Disorder Additional Past Medical History / Comment(s): hx. skin cancer , cleopatra tinnitis, wears cleopatra hearing aides. History of Any Multi-Drug Resistant Organisms: None Reported Past Surgical History: Appendectomy, Heart Catheterization With Stent, Hernia Repair, Joint Replacement, Orthopedic Surgery Additional Past Surgical History / Comment(s): knee surg lft., bilateral shoulder surg., laser surgery and turp for prostate disorder, Left TKA Past Anesthesia/Blood Transfusion Reactions: No Reported Reaction Additional Past Anesthesia/Blood Transfusion Reaction / Comment(s): urine retention Date of Last Stent Placement:: 10/25/19 Past Psychological History: No Psychological Hx Reported Smoking Status: Former smoker Past Alcohol Use History: Rare Additional Past Alcohol Use History / Comment(s): quit 1989 Past Drug Use History: None Reported
--- NOTE | 2024-09-29 19:23 | P.OP ---
Date of Procedure: 09/29/24 Preoperative Diagnosis: Acute Cholecystitis UGI Bleed Postoperative Diagnosis: Acute Gangrenous Cholecystitis Gastritis Procedure(s) Performed: 1. Robotic Cholecystectomy 2. EGD with Biopsy Anesthesia: JOHN Surgeon: Erasmo Moyer Estimated Blood Loss (ml): 50 Pathology: other (1. Gallbladder 2. Antral Biopsy for H. Pylori) Condition: stable Disposition: PACU Description of Procedure: The patient was brought to the operating suite and placed in the supine position. Anesthesia was given and endotracheal intubation was performed. The abdomen was prepped and draped in the usual sterile fashion. A timeout was performed. An incision was made at Garcia's point and a #5 mm optiview was used to gain access to the abdominal cavity. The abdomen was insufflated. The patient was positioned. Additional working ports were placed and the 5 mm port was replaced with a 12 mm port. The robot was docked and the rest of the procedure was performed from the console. Gallbladder was noted to be gangrenous. the gallbladder was retracted in normal fashion and the cystic duct and cystic artery were visualized and isolated. A critical view of safety was obtained. Two clips were placed both proximally and distally on the cystic duct and the cystic artery. The duct and artery were divided. Bovie electrocautery was used to take the gallbladder off of the liver bed. There was good hemostasis. The galbladder was removed through the 12 mm port. The ports were removed. Incisions were closed with #4-0 monocryl suture. Skin glue was applied. Next, EGD was performed. The scope was advanced through the oropharynx into the esophagus and into the stomach through the pylorus into the duodenum. Duodenum appeared grossly normal. There was some gastritis noted. Was no evidence of any ulcers or bleeding in the stomach or duodenum. Antral biopsies were taken for H. pylori. Scope was withdrawn to the esophagus and there was no esophagitis noted. The endoscope was completely removed. The patient tolerated the procedure well and was sent to the PACU in stable condition.
[2024-09-30 08:57] LABS: Basophils # (A) 0.03 10*3/uL (0.00-0.10); Basophils % (A) 0.2 %; Eosinophils # (A) 0.03 10*3/uL (0.04-0.35); Eosinophils % (A) 0.2 %; HCT 36.7 % (39.6-50.0); HGB 12.9 g/dL (13.0-17.0); Lymphocytes # (A) 1.12 10*3/uL (0.90-5.00); Lymphocytes % (A) 5.9 %; MCH 30.4 pg (27.0-32.0); MCHC 35.1 g/dL (32.0-37.0); MCV 86.4 fL (80.0-97.0); Mean Platelet Volume 9.6 fL (9.5-12.2); Monocytes # (A) 1.48 10*3/uL (0.20-1.00); Monocytes % (A) 7.8 %; Neutrophils # (A) 16.26 10*3/uL (1.80-7.70); Neutrophils % (A) 85.3 %; Platelet Count 354 10*3/uL (140-440); RBC 4.25 10*6/uL (4.40-5.60); RDW 13.2 % (11.5-14.5); WBC 19.03 10*3/uL (4.50-10.00)
[2024-09-30 09:13] LABS: ALT 59 U/L (4-49); AST 105 U/L (17-59); African American GFR (CKD) >90 (>60 ml/min/1.73 sqM); Albumin 3.2 g/dL (3.5-5.0); Albumin/Globulin Ratio 1.3; Alkaline Phosphatase 274 U/L (38-126); Anion Gap 12 mmol/L; Blood Urea Nitrogen 15 mg/dL (9-20); Calcium 8.1 mg/dL (8.4-10.2); Carbon Dioxide 22 mmol/L (22-30); Chloride 101 mmol/L (98-107); Globulin 2.4 g/dL; Glucose 126 mg/dL (74-99); Non-African American GFR(CKD) >90 (>60 ml/min/1.73 sqM); Potassium 3.5 mmol/L (3.5-5.1); Sodium 135 mmol/L (137-145); Total Bilirubin 1.2 mg/dL (0.2-1.3); Total Protein 5.6 g/dL (6.3-8.2)
[2024-09-30 12:25] VITALS: BMI 26.9
--- NOTE | 2024-09-30 14:09 | P.PN ---
Subjective Progress Note Date: 09/30/24 SURGICAL PROGRESS NOTE CHIEF COMPLAINT: Epigastric pain with nausea and vomiting HISTORY OF PRESENT ILLNESS: Patient is postop day #1 status post robotic cholecystectomy for acute gangrenous cholecystitis. Patient also had a EGD with evidence of gastritis. Patient is up and ambulating in the room. His pain is controlled. Denies any nausea or vomiting. He is tolerating diet. Afebrile. WBC did go up from 14-19. Hgb 12.9 total bilirubin 1.2 LFTs elevated AST 105 ALT 59 alk phos 274 PHYSICAL EXAM: VITAL SIGNS: Reviewed. GENERAL: Well-developed in no acute distress. HEENT: No sclera icterus. Extraocular movements grossly intact. Moist buccal mucosa. Head is atraumatic, normocephalic. ABDOMEN: Soft. Nondistended. NEUROLOGIC: Alert and oriented. Cranial nerves II through XII grossly intact. ASSESSMENT: 1. Acute gangrenous cholecystitis status post laparoscopic appendectomy 2. Gastritis reported on EGD PLAN: -Continue to monitor patient due to leukocytosis. Repeat CBC in AM. Continue IV antibiotics. -Okay for regular diet -Continue to hold Plavix -Continue pain management -Repeat CMP in a.m. Physician Blunger note has been reviewed by physician. Signing provider agrees with the documented findings, assessment, and plan of care. Attestation Patient seen and examined at bedside. Postoperative day #1, robotic cholecystectomy for acute gangrenous cholecystitis. Appears to be doing well and ambulating in his room. He is in good spirits. Tolerating diet without any nausea or vomiting. Patient does have leukocytosis noted. Continue IV antibiotics. Continue to hold Plavix. Likely surgically stable for discharge in 24 to 48 hours. Jluis Crandall DO Objective - Vital Signs Vital signs: Vital Signs Temp 97.7 F 09/30/24 07:00 Pulse 61 09/30/24 07:00 Resp 16 09/30/24 07:00 BP 143/80 09/30/24 07:00 Pulse Ox 93 L 09/30/24 07:00 FiO2 21 09/26/24 14:18 Intake & Output 09/29/24 09/30/24 09/30/24 18:59 06:59 18:59 Intake Total 1999 221 Output Total 50 Balance 1950 221 Weight 90.265 kg 90.265 kg Intake: IV 2000 Oral 221 Output: Estimated Blood Loss 50 Other: Voiding Method Toilet # Voids 2 2 - Labs CBC & Chem 7: 09/30/24 08:34 09/30/24 08:34 Labs: Abnormal Lab Results - Last 24 Hours (Table) 09/30/24 09/30/24 Range/Units 08:34 08:34 WBC 19.03 H (4.50-10.00) 10*3/uL RBC 4.25 L (4.40-5.60) 10*6/uL Hgb 12.9 L (13.0-17.0) g/dL Hct 36.7 L (39.6-50.0) % Immature Gran # 0.11 H (0.00-0.04) 10*3/uL Neutrophils # 16.26 H (1.80-7.70) 10*3/uL Monocytes # 1.48 H (0.20-1.00) 10*3/uL Eosinophils # 0.03 L (0.04-0.35) 10*3/uL Sodium 135 L (137-145) mmol/L Creatinine 0.64 L (0.66-1.25) mg/dL Glucose 126 H (74-99) mg/dL Calcium 8.1 L (8.4-10.2) mg/dL AST 105 H (17-59) U/L ALT 59 H (4-49) U/L Alkaline Phosphatase 274 H (38-126) U/L Total Protein 5.6 L (6.3-8.2) g/dL Albumin 3.2 L (3.5-5.0) g/dL
--- NOTE | 2024-09-30 17:34 | P.PN ---
Progress Note - Text Progress Note Date: 09/30/24 Pleasant 79-year-old patient who follows with Dr. Inna Zaragoza. Chronic medical conditions include COPD, hard of hearing with hearing aid, hypertension, hyperlipidemia, DJD, tinnitus, BPH. Also has CAD with stent placed around 220. 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 Fitzgerald. Around 3 AM patient woke up with pain what he said was localized chest but actually was more in the upper abdomen just right of the epigastrium. Pretty severe. Patient threw up at least 4 times. Then started having right retching after that. No fever no chills. Pain remains localized. Did break out in a sweat. No dizziness no lightheadedness. Patient baseline is fairly active and last stress test was about 2 years ago. Patient is accompanied by his in the ER. September 26: Patient still having pain on the right side of upper abdomen. HIDA scan done today showed nonvisualization of the gallbladder. Patient being scheduled for cholecystectomy on , September 29., Because of Plavix September 27: Continues to have abdominal pain. Pending surgery this . Plavix has been held. Remains on IV ceftriaxone. IV fluids. September 28: Abdominal pain present. Scheduled for surgery tomorrow. Clear liquids. N.p.o. after midnight. September 29: Patient seen this morning. Pending surgery. Family at the bedside. NPO. Antibiotics in place September 30: Patient found to have gangrenous gallbladder. Saw the patient this morning. No bowel movement. No nausea vomiting. IV ceftriaxone IV Flagyl. Told increase activity. Has been advanced to soft diet. Patient very keen to go home. Discussed. Active Medications Hydrocodone Bitart/Acetaminophen (Hydrocodone/Apap 5-325mg 1 Each Tab) 1 each PO Q6HR PRN PRN Reason: Mild to Moderate Pain (1 - 6) Last Admin: 09/30/24 16:50 Dose: 1 each Hydrocodone Bitart/Acetaminophen (Hydrocodone/Apap 10-325mg 1 Each Tab) 1 each PO Q6HR PRN PRN Reason: Pain 7-10 Last Admin: 09/30/24 03:17 Dose: 1 each Amlodipine Besylate (Amlodipine 5 Mg Tab) 5 mg PO HS SERA Last Admin: 09/29/24 21:53 Dose: 5 mg Aspirin (Aspirin 81 Mg) 81 mg PO DAILY [facility] Last Admin: 09/30/24 09:13 Dose: 81 mg Atorvastatin Calcium (Atorvastatin 40 Mg Tab) 40 mg PO [facility] Last Admin: 09/29/24 21:54 Dose: 40 mg Enoxaparin Sodium (Enoxaparin 40 Mg/0.4 Ml Syringe) 40 mg SQ DAILY [facility] Last Admin: 09/30/24 09:12 Dose: 40 mg Ceftriaxone Sodium 1 gm/ (Sodium Chloride) 50 mls @ 100 mls/hr IVPB Q24HR [facility]; Protocol Last Admin: 09/30/24 09:13 Dose: 100 mls/hr Metronidazole 500 mg/ IV (Solution) 100 mls @ 100 mls/hr IVPB Q8HR [facility]; Protocol Last Admin: 09/30/24 16:51 Dose: 100 mls/hr Sodium Chloride (Saline 0.9%) 1,000 mls @ 50 mls/hr IV .Q20H [facility] Last Admin: 09/29/24 18:35 Dose: Not Given Losartan Potassium (Losartan 50 Mg Tab) 100 mg PO [facility] Last Admin: 09/29/24 21:53 Dose: 100 mg Morphine Sulfate (Morphine Sulfate 4 Mg/Ml Syringe) 4 mg IVP Q4HR PRN PRN Reason: Moderate to Severe Pain (4-10) Nitroglycerin (Nitroglycerin Sl Tabs 0.4 Mg Tab) 0.4 mg SUBLINGUAL Q5M PRN PRN Reason: Chest Pain Ondansetron HCl (Ondansetron 4 Mg/2 Ml Vial) 4 mg IVP Q6HR PRN PRN Reason: Nausea And Vomiting Last Admin: 09/29/24 14:07 Dose: 4 mg Pantoprazole Sodium (Pantoprazole 40 Mg/10 Ml Vial) 40 mg IVP DAILY [facility] Last Admin: 09/30/24 09:12 Dose: 40 mg Propranolol HCl (Propranolol La 60 Mg Cap.Sa.24h) 60 mg PO [facility] Last Admin: 09/29/24 21:54 Dose: 60 mg Social history: . Stopped smoking in 1989. 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 Alcohol rarely Physical examination: VITAL SIGNS: 98.4, 70, 16, 149 x 78, 93% room air GENERAL: BMI 27, up in a chair EYES: Pupils equal. Conjunctiva geno l. HEENT: External appearance of nose and ears normal, oral cavity grossly normal. Decreased hearing NECK: JVD not raised; masses not palpable. HEART: First and second heart sounds are normal; no edema. LUNGS: Respiratory rate normal; decreased breath sound. ABDOMEN: Soft, some abdominal tenderness, liver spleen not palpable, no masses palpable. PSYCH: Alert and oriented x3; mood and affect geno l. MUSCULOSKELETAL:No Clubbing/cyanosis;muscles-grossly intact. OA INVESTIGATIONS, reviewed in the clinical context: September 30: White count 19 hemoglobin 12.9 platelets 354 potassium 3.5 creatinine 0.64 AST 105 ALT 59 alkaline phosphatase 274 total bilirubin 1.2 September 29: White count 14.8 hemoglobin 12.8 potassium 3.2 replete 3.6 creatinine 0.69 September 28: White count 20.8 September 27: White count 21.8 hemoglobin 15.1 potassium 3.5 creatinine 0.9 HIDA scan: Nonvisualization of the gallbladder. September 25, 2024: White count 15.2 hemoglobin 14.9 platelets 3 1 left shift sodium 141 potassium 4.5 BUN 20 creatinine 0.89 Troponin I less than 0.012 EKG tracing personally reviewed by or-normal sinus rhythm. Unremarkable Chest x-ray film personally reviewed by me-portable. Poor inspiration film CT chest abdomen: Distended gallbladder with subtle surrounding fat stranding. Small bowel feces sign without evidence of obstruction or dilatation. Sigmoid diverticulosis. Small reactive hernia. Ultrasound gallbladder: Distended gallbladder without wall thickening or gallstones. Common bile duct within normal limits. Right kidney shows cortical thinning without evidence of hydronephrosis. Assessment plan -Acute presentation with sudden onset of pain in the upper epigastrium on the right side. Accompanied by bouts of vomiting. Significant tenderness. Elevated white count. Has a distended gallbladder on the CT scan with pericholecystic fluid. No CBD dilatation no gallstones reported.: Possibly acalculous cholecystitis with acute presentation: Not improving HIDA scan: Nonvisualization of the gallbladder IV Zosyn.-Discontinued. Currently on IV ceftriaxone and IV Flagyl Acute gangrenous cholecystitis. Status post cholecystectomy on September [address] Salazar On regular diet. No BM -Postop transaminitis Hold Lipitor for now. Repeat labs - Leukocytosis worsening. From gangrenous cholecystitis On IV ceftriaxone IV Flagyl - CAD with stent in 2019. Patient just switched over his smoke inspector Amlodipine. Inderal LA. Plavix-held. -Essential hypertension Amlodipine 5 mg nightly. Inderal LA 60 mg nightly. Losartan 100 mg nightly. -Hyperlipidemia Lipitor 40 mg nightly - Primary osteoarthritis multiple joints Hold diclofenac sodium for now. - Hard of hearing, has hearing aids - Full code Diet has been advanced. White count is up. Repeat labs tomorrow. Increase active. Past Medical History Past Medical History: Cancer, COPD, Hearing Disorder / Deafness, Hyperlipidemia, Hypertension, Musculoskeletal Disorder, Prostate Disorder Additional Past Medical History / Comment(s): hx. skin cancer , cleopatra tinnitis, wears cleopatra hearing aides. History of Any Multi-Drug Resistant Organisms: None Reported Past Surgical History: Appendectomy, Heart Catheterization With Stent, Hernia Repair, Joint Replacement, Orthopedic Surgery Additional Past Surgical History / Comment(s): knee surg lft., bilateral shoulder surg., laser surgery and turp for prostate disorder, Left TKA Past Anesthesia/Blood Transfusion Reactions: No Reported Reaction Additional Past Anesthesia/Blood Transfusion Reaction / Comment(s): urine rete ntion Date of Last Stent Placement:: 10/25/19 Past Psychological History: No Psychological Hx Reported Smoking Status: Former smoker Past Alcohol Use History: Rare Additional Past Alcohol Use History / Comment(s): quit 1989 Past Drug Use History: None Reported
[2024-10-01 06:23] LABS: Basophils # (A) 0.04 10*3/uL (0.00-0.10); Basophils % (A) 0.3 %; Eosinophils # (A) 0.35 10*3/uL (0.04-0.35); Eosinophils % (A) 2.3 %; HGB 12.6 g/dL (13.0-17.0); Lymphocytes # (A) 1.78 10*3/uL (0.90-5.00); Lymphocytes % (A) 11.6 %; MCH 30.6 pg (27.0-32.0); Mean Platelet Volume 9.4 fL (9.5-12.2); Monocytes # (A) 1.63 10*3/uL (0.20-1.00); Monocytes % (A) 10.6 %; Neutrophils # (A) 11.39 10*3/uL (1.80-7.70); Neutrophils % (A) 74.2 %; Platelet Count 330 10*3/uL (140-440); RBC 4.12 10*6/uL (4.40-5.60); RDW 13.2 % (11.5-14.5); WBC 15.34 10*3/uL (4.50-10.00)
[2024-10-01 06:51] LABS: ALT 48 U/L (4-49); AST 54 U/L (17-59); African American GFR (CKD) >90 (>60 ml/min/1.73 sqM); Albumin 2.8 g/dL (3.5-5.0); Albumin/Globulin Ratio 1.3; Alkaline Phosphatase 221 U/L (38-126); Anion Gap 9 mmol/L; Blood Urea Nitrogen 12 mg/dL (9-20); Calcium 8.1 mg/dL (8.4-10.2); Carbon Dioxide 24 mmol/L (22-30); Chloride 101 mmol/L (98-107); Globulin 2.2 g/dL; Glucose 93 mg/dL (74-99); Non-African American GFR(CKD) >90 (>60 ml/min/1.73 sqM); Potassium 3.2 mmol/L (3.5-5.1); Sodium 134 mmol/L (137-145); Total Bilirubin 0.8 mg/dL (0.2-1.3)
[2024-10-01 07:59] VITALS: BP 157/91; PULSE 66; RESP 17; TEMP 97.8
[2024-10-01] MEDS ORDERED: HYDROmorphone 0.5 MG/0.5 ML SYRINGE IVP PRN (09:33)
[2024-10-01] MEDS ORDERED: LIDOCAINE 1% (10MG/ML) FOR IV START INTRADERMA PRN (09:33)
[2024-10-01] MEDS ORDERED: fentaNYL (PF) 50 MCG/ML 2 ML AMP IVP PRN (09:33)
[2024-10-01] MEDS ORDERED: MIDAZOLAM 2 MG/2 ML VIAL IV PRN (09:33)
[2024-10-01] MEDS: LACTATED RINGERS 1,000 ML IV SCH (10:01)
[2024-10-01] MEDS: ONDANSETRON 4 MG/2 ML VIAL IVP ONE (10:01)
[2024-10-01] MEDS: DEXAMETHASONE SOD PHOSPHATE 4 MG/ML 1 ML VIAL IV ONE (10:01)
--- NOTE | 2024-10-01 12:14 | P.PN ---
Subjective Progress Note Date: 10/01/24 Patient seen and examined at bedside. Doing well. Denies abdominal pain. Having bowel function and tolerating diet. Objective - Vital Signs Vital signs: Vital Signs Temp 97.8 F 10/01/24 07:00 Pulse 66 10/01/24 07:00 Resp 17 10/01/24 07:00 BP 157/91 10/01/24 07:00 Pulse Ox 94 L 10/01/24 07:00 FiO2 21 09/26/24 14:18 Intake & Output 09/30/24 10/01/24 10/01/24 18:59 06:59 18:59 Intake Total 442 Balance 442 Weight 90.265 kg Intake: Oral 442 Other: Voiding Method Toilet Toilet Toilet # Voids 3 2 - Constitutional General appearance: Present: cooperative - Gastrointestinal Gastrointestinal Comment(s): Soft, nontender, nondistended, incision sites are healing well - Labs CBC & Chem 7: 10/01/24 05:33 10/01/24 05:33 Labs: Abnormal Lab Results - Last 24 Hours (Table) 10/01/24 10/01/24 Range/Units 05:33 05:33 WBC 15.34 H (4.50-10.00) 10*3/uL RBC 4.12 L (4.40-5.60) 10*6/uL Hgb 12.6 L (13.0-17.0) g/dL Hct 35.0 L (39.6-50.0) % MPV 9.4 L (9.5-12.2) fL Immature Gran # 0.15 H (0.00-0.04) 10*3/uL Neutrophils # 11.39 H (1.80-7.70) 10*3/uL Monocytes # 1.63 H (0.20-1.00) 10*3/uL Sodium 134 L (137-145) mmol/L Potassium 3.2 L (3.5-5.1) mmol/L Creatinine 0.65 L (0.66-1.25) mg/dL Calcium 8.1 L (8.4-10.2) mg/dL Alkaline Phosphatase 221 H (38-126) U/L Total Protein 5.0 L (6.3-8.2) g/dL Albumin 2.8 L (3.5-5.0) g/dL Assessment and Plan Plan: Postoperative day #2, robotic cholecystectomy. Patient has been doing well. White count is decreasing. Hemoglobin is stable. Patient can restart anticoagulation. Surgically stable for discharge. Recommend discharge on oral antibiotics.
[2024-10-01] MEDS: POTASSIUM CHLORIDE ER 20 MEQ TAB.ER PO STA (12:52)
--- NOTE | 2024-10-01 19:42 | P.DS ---
Providers Date of admission: 09/25/24 10:18 Expected date of discharge: 10/01/24 Attending physician: hJoan Bang Consults: 09/25/24 09:45 Consult Physician Routine Consulting Provider: Juan Holt Consult Reason/Comments: Dilated gallbladder Do you want consulting provider notified?: Yes Primary care physician: Inna Zaragoza MD Hospital Course: Pleasant 79-year-old patient who follows with Dr. Inna Zaragoza. Chronic medical conditions include COPD, hard of hearing with hearing aid, hypertension, hyperlipidemia, DJD, tinnitus, BPH. Also has CAD with stent placed around 220. 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 Fitzgerald. Around 3 AM patient woke up with pain what he said was localized chest but actually was more in the upper abdomen just right of the epigastrium. Pretty severe. Patient threw up at least 4 times. Then started having right retching after that. No fever no chills. Pain remains localized. Did break out in a sweat. No dizziness no lightheadedness. Patient baseline is fairly active and last stress test was about 2 years ago. Patient is accompanied by his in the ER. September 26: Patient still having pain on the right side of upper abdomen. HIDA scan done today showed nonvisualization of the gallbladder. Patient being scheduled for cholecystectomy on , September 29., Because of Plavix September 3: Continues to have abdominal pain. Pending surgery this . Plavix has been held. Remains on IV ceftriaxone. IV fluids. September 28: Abdominal pain present. Scheduled for surgery tomorrow. Clear liquids. N.p.o. after midnight. September 29: Patient seen this morning. Pending surgery. Family at the bedside. NPO. Antibiotics in place September 30: Patient found to have gangrenous gallbladder. Saw the patient this morning. No bowel movement. No nausea vomiting. IV ceftriaxone IV Flagyl. Told increase activity. Has been advanced to soft diet. Patient very keen to go home. Discussed. October 01: Doing much better. Tolerating his diet. Pain well-controlled. Ambulating. Very a excited s to go home. Cleared by surgery. They have given him 5 more days of Augmentin. Patient told to take a soft diet. Patient to follow-up with his product marketing executive, PCP and the surgeon upon discharge. Questions answered Social history: . Stopped smoking in 1989. 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 Alcohol rarely Physical examination: VITAL SIGNS: 97.8, 66, 17, 157 x 91, 94% room air GENERAL: BMI 27, up in a chair EYES: Pupils equal. Conjunctiva geno l. HEENT: External appearance of nose and ears normal, oral cavity grossly normal. Decreased hearing NECK: JVD not raised; masses not palpable. HEART: First and second heart sounds are normal; no edema. LUNGS: Respiratory rate normal; decreased breath sound. ABDOMEN: Soft, minimal tenderness, liver spleen not palpable, no masses palpable. PSYCH: Alert and oriented x3; mood and affect geno l. MUSCULOSKELETAL:No Clubbing/cyanosis;muscles-grossly intact. OA INVESTIGATIONS, reviewed in the clinical context: October 01: White count 15.3 hemoglobin 12.6 creatinine 0.65 total bilirubin 0.8 AST 54 ALT 48 September 30: White count 19 hemoglobin 12.9 platelets 354 potassium 3.5 creatinine 0.64 AST 105 ALT 59 alkaline phosphatase 274 total bilirubin 1.2 September 29: White count 14.8 hemoglobin 12.8 potassium 3.2 replete 3.6 creatinine 0.69 September 28: White count 20.8 September 27: White count 21.8 hemoglobin 15.1 potassium 3.5 creatinine 0.9 HIDA scan: Nonvisualization of the gallbladder. September 25, 2024: White count 15.2 hemoglobin 14.9 platelets 3 1 left shift sodium 141 potassium 4.5 BUN 20 creatinine 0.89 Troponin I less than 0.012 EKG tracing personally reviewed by sd-normal sinus rhythm. Unremarkable Chest x-ray film personally reviewed by sd-portable. Poor inspiration film CT chest abdomen: Distended gallbladder with subtle surrounding fat stranding. Small bowel feces sign without evidence of obstruction or dilatation. Sigmoid diverticulosis. Small reactive hernia. Ultrasound gallbladder: Distended gallbladder without wall thickening or gallstones. Common bile duct within normal limits. Right kidney shows cortical thinning without evidence of hydronephrosis. Assessment plan -Acute presentation with sudden onset of pain in the upper epigastrium on the right side. Accompanied by bouts of vomiting. Significant tenderness. Elevated white count. Has a distended gallbladder on the CT scan with pericholecystic fluid. No CBD dilatation no gallstones reported.: Possibly acalculous cholecystitis with acute presentation: Not improving HIDA scan: Nonvisualization of the gallbladder IV Zosyn.-Discontinued. Currently on IV ceftriaxone and IV Flagyl Acute gangrenous cholecystitis. Status post cholecystectomy on September [address] Salazar Tolerating diet Being discharged on 5 days of Augmentin -Postop transaminitis: Improved - Leukocytosis worsening. From gangrenous cholecystitis: Improving On IV ceftriaxone IV Flagyl Being discharged on Augmentin - CAD with stent in 2019. 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 Inderal LA. Plavix-held. -Essential hypertension Amlodipine 5 mg nightly. Inderal LA 60 mg nightly. Losartan 100 mg nightly. -Hyperlipidemia Lipitor 40 mg nightly - Primary osteoarthritis multiple joints Hold diclofenac sodium for now. - Hard of hearing, has hearing aids - Full code Disposition: Home Past Medical History Past Medical History: Cancer, COPD, Hearing Disorder / Deafness, Hyperlipidemia, Hypertension, Musculoskeletal Disorder, Prostate Disorder Additional Past Medical History / Comment(s): hx. skin cancer , cleopatra tinnitis, wears cleopatra hearing aides. History of Any Multi-Drug Resistant Organisms: None Reported Past Surgical History: Appendectomy, Heart Catheterization With Stent, Hernia Repair, Joint Replacement, Orthopedic Surgery Additional Past Surgical History / Comment(s): knee surg lft., bilateral shoulder surg., laser surgery and turp for prostate disorder, Left TKA Past Anesthesia/Blood Transfusion Reactions: No Reported Reaction Additional Past Anesthesia/Blood Transfusion Reaction / Comment(s): urine retention Date of Last Stent Placement:: 10/25/19 Past Psychological History: No Psychological Hx Reported Smoking Status: Former smoker Past Alcohol Use History: Rare Additional Past Alcohol Use History / Comment(s): quit 1989 Past Drug Use History: None Reported Plan - Discharge Summary Discharge Rx Participant: No New Discharge Prescriptions: New Amoxic-Pot Clav 500-125 mg [Augmentin 500-125 mg] 1 tab PO Q12HR 5 Days #10 tab Aspirin 81 mg PO DAILY tab Continue Propranolol LA [Inderal LA] 60 mg PO HS Diclofenac Sodium 100 mg PO HS amLODIPine [Norvasc] 5 mg PO HS Losartan Potassium 100 mg PO HS Atorvastatin Calcium 40 mg PO HS Clopidogrel [Plavix] 75 mg PO HS Discharge Medication List Atorvastatin Calcium 40 mg PO HS 07/08/22 [History] Losartan Potassium 100 mg PO HS 07/08/22 [History] amLODIPine [Norvasc] 5 mg PO HS 07/08/22 [History] Clopidogrel [Plavix] 75 mg PO HS 09/25/24 [History] Diclofenac Sodium 100 mg PO HS 09/25/24 [History] Propranolol LA [Inderal LA] 60 mg PO HS 09/25/24 [History] Amoxic-Pot Clav 500-125 mg [Augmentin 500-125 mg] 1 tab PO Q12HR 5 Days #10 tab 10/01/24 [Rx] Aspirin 81 mg PO DAILY tab 10/01/24 [Rx] Follow up Appointment(s)/Referral(s): Goldie Garcia MD [REFERRING] - 1 Week Erasmo Moyer DO [Medical Doctor] - 2 Weeks Inna Zaragoza MD [Primary Care Provider] - 1-2 days Patient Instructions/Handouts: Laparoscopic Cholecystectomy (DC) Discharge Disposition: HOME SELF-CARE
== END 2024-10-01 12:48 | disposition home or self-care (01) | DRG 419 ==
LOC: EC 06:43 → OBSVTOIN 10:18 → 6NMEDSUR 10:18
PROVIDERS: ADMIT Hospitalist; ATTEND Hospitalist
PROC: 8E0W4CZ Robotic Assisted Procedure of Trunk Region, Percutaneous Endoscopic Approach (ICD-10-PCS; 2024-09-29)
PROC: 0FT44ZZ Resection of Gallbladder, Percutaneous Endoscopic Approach (ICD-10-PCS; principal; 2024-09-29 14:00)
PROC: 0DB78ZX Excision of Stomach, Pylorus, Via Natural or Artificial Opening Endoscopic, Diagnostic (ICD-10-PCS; 2024-09-29 14:00)
DX: K81.0 Acute cholecystitis (principal); K82.A1 Gangrene of gallbladder in cholecystitis; J44.9 Chronic obstructive pulmonary disease, unspecified; I10 Essential (primary) hypertension; H91.90 Unspecified hearing loss, unspecified ear; E78.5 Hyperlipidemia, unspecified; M15.9 Polyosteoarthritis, unspecified; N40.0 Benign prostatic hyperplasia without lower urinary tract symptoms; K82.8 Other specified diseases of gallbladder; K57.30 Diverticulosis of large intestine without perforation or abscess without bleeding; K29.70 Gastritis, unspecified, without bleeding; K44.9 Diaphragmatic hernia without obstruction or gangrene; I25.10 Atherosclerotic heart disease of native coronary artery without angina pectoris; Z79.02 Long term (current) use of antithrombotics/antiplatelets; Z79.82 Long term (current) use of aspirin; Z87.891 Personal history of nicotine dependence; Z95.5 Presence of coronary angioplasty implant and graft; Z97.4 Presence of external hearing-aid; Z79.899 Other long term (current) drug therapy; Z85.828 Personal history of other malignant neoplasm of skin; Z96.652 Presence of left artificial knee joint
CPT/HCPCS: 36415; 43239; 71046; 71260; 74177; 76705; 78226; 80053; 80061; 83690; 83735; 84132; 84484; 85025; 85610; 85730; 88304; 88305; 88342; 93005; 93306; 94760; 96374; 96375; 96376; 99285